=== PATIENT | female | born 1945 | race Caucasian/White ===

== ENCOUNTER 2016-04-17 09:29 | Day surgery (SDC) | payer MEDICARE ==
[2016-04-16 10:13] VITALS: BMI 29.2
[2016-04-17] MEDS ORDERED: LACTATED RINGERS 1,000 ML IV SCH (10:00)
[2016-04-17 10:46] VITALS: RESP 18; TEMP 98.2
[2016-04-17] MEDS ORDERED: LIDOCAINE 1% 20 ML VIAL (10MG/ML) FOR IV START SQ ONE (10:55)
[2016-04-17] MEDS ORDERED: LACTATED RINGERS 1,000 ML IV ONE ×2 (10:55→11:51)
[2016-04-17] MEDS ORDERED: fentaNYL (PF) 50 MCG/ML 2 ML AMP ONE (11:16)
[2016-04-17] MEDS ORDERED: MIDAZOLAM 2 MG/2 ML VIAL ONE (11:16)
[2016-04-17] MEDS ORDERED: TRIAMCINOLONE ACETONIDE 40 MG/ML 1 ML VIAL ONE (11:16)
[2016-04-17] MEDS ORDERED: BUPIVACAINE (PF) 0.5% 30 ML VIAL ONE (11:16)
--- NOTE | 2016-04-17 11:46 | P.PCN ---
Date of Procedure: 04/17/16 Procedure(s) Performed: PREOPERATIVE DIAGNOSIS : 1- Lumbar spondylosis with Facet Arthropathy without myelopathy . 2- Lumber degenerative disc disease. 3-sacroiliitis POSTOPERATIVE DIAGNOSIS: Same as preoperative diagnosis PROCEDURE: Diagnostic bilateral L3 -4 , L4 -5 , and L5-S1 medial branch block under fluoroscopy ANESTHESIA: Local with 1% lidocaine; IV sedation with Versed 2 mg and Fentanyl 100 mcg. EBL: Minimal COMPLICATION: None. IV FLUIDS: 100 mL of normal saline. PROCEDURE INDICATION: Chronic low back pain secondary to Facet arthropathy unresponsive to conservative treatment. PROCEDURE DESCRIPTION: the patient was seen and identified in the preop holding area , risks and benefits and possible complications of the procedure and alternative were discussed with the patient, and the patient agreed to proceed with the procedure and signed the consent IV was started and vital signs monitored during the procedure and fluoroscopy was used to maximize the benefit and accuracy of the needle placement, and sedation was given to decrease patient anxiety, patient was taken to the procedure room and placed in prone position vital signs monitored in the back prepped with chlorhexidine X3 then under strict sterile technique using a right oblique fluoroscopy ,the junction of the transverse process and the superior articulating process of the right L3- 4 , L4- 5, and L5-S1 vertebra which corresponding to the fluoroscopy image of the eye of the Satinder dog on the block side for the medial branches and subsequently , after local infiltration of skin and subcu tissuies with lidocaine 1% one mL at each level ,then 22- gauge Quincke-type needles , 3 needle was used , each one of them placed at the junction of the base of the transverse process and the superior articular process at the appropriate level, and the needle was advanced until the periosteum contacted, needle placement confirmed with AP oblique and lateral view and after appropriate needle placement confirmed, and after negative aspiration for heme and CSF and there was no paresthesia 1-1/2 mL of Marcaine 0.5% mixed with 40 mg Kenalog , then half mL injected at each level after negative aspiration the needle subsequently removed and the same procedure repeated for the left side at left side at L3-4, L4- 5 and L5-S1 levels. At the end of the procedure and the needles removed and a bandage applied after the skin was cleaned the cleaning solution patient taken to recovery room in stable condition and monitors in the recovery room for 20-30 minutes and discharged home in stable condition after discharge criteria met and patient will follow up with the pain clinic in 2-4 weeks
[2016-04-17] MEDS ORDERED: IV FLUID CONTINUATION 1,000 ML IV ONE (11:51)
--- NOTE | 2016-04-17 11:59 | FL ---
Fluoroscopy INDICATION: Pain FINDINGS: Fluoroscopy time: 8 seconds. Images obtained: 4. IMPRESSIONS: 1. Documentation of fluoroscopy.
[2016-04-17 12:06] VITALS: BP 136/66; PULSE 65
== END 2016-04-17 12:20 | disposition home or self-care (01) ==
LOC: ORPAIN 09:29
PROVIDERS: ATTEND Specialist
DX: G89.29 Other chronic pain (principal); M54.5 Low back pain; M47.816 Spondylosis without myelopathy or radiculopathy, lumbar region; M46.96 Unspecified inflammatory spondylopathy, lumbar region; M51.36 Other intervertebral disc degeneration, lumbar region; M46.1 Sacroiliitis, not elsewhere classified; Z88.1 Allergy status to other antibiotic agents
CPT/HCPCS: 64493; 64494; 64495; J2250; J3301; J3010

== ENCOUNTER → 2016-04-18 | Outpatient (CLI) | payer MEDICARE ==
--- NOTE | 2016-04-18 12:30 | MR ---
EXAMINATION TYPE: MR cervical spine wo con DATE OF EXAM ORDERED: 04/18/2016 12:19 PM HISTORY: M51.26 Bulging lumbar disc, R25.2 Cramp and spasm. TECHNOLOGIST HISTORY AT TIME OF EXAM: Muscle cramps COMPARISON: None. TECHNIQUE: Multiplanar, multiecho imaging of the cervical spine was obtained without contrast on a 1 .5 stephania magnet. FINDINGS: Prevertebral soft tissues are normal. Vertebral body height and alignment are maintained. Atlantoaxial relationships are normal. There is a normal craniocervical junction. Cord signal is maintained. At C2-C3, there is mild disc space loss. The intervertebral foramina are well maintained. There is a diffuse disc displacement mildly deforming the thecal sac without cord contact. There is mild uncover tebral joint disease. At C3-C4, there is an attempted fusion at this level. This is incomplete. There is bilateral interver tebral foraminal narrowing at C4. There is no significant compressive discopathy. There is mild uncovertebral joint disease. At C4-C5, there is disc space loss and hypertrophic spondylosis both anteriorly and posteriorly. Ther e is bilateral intervertebral foraminal narrowing, worse on the right than the left. There is a mixed spondylitic bar present posteriorly deforming the thecal sac without definite cord contact. There is mild uncovertebral joint disease. At C5-C6, the intervertebral foramina are reasonably well-maintained. There is a diffuse disc displac ement. There is uncovertebral joint disease. At C6-C7, there is mild, bilateral intervertebral foraminal narrowing. There is no significant compre ssive discopathy. There is uncovertebral joint disease. At C7-T1, there is a diffuse disc displacement. The intervertebral foramina are well maintained. IMPRESSION: 1. DIFFUSE DEGENERATIVE DISC DISEASE AND UNCOVERTEBRAL JOINT DISEASE. 2. ATTEMPTED EFFUSION C3-4. 3. MULTILEVEL INTERVERTEBRAL FORAMINAL NARROWING.
== END | disposition home or self-care (01) ==
LOC: RADMRIMAIN 11:19
PROVIDERS: ATTEND Psychiatry & Neurology Neurology
DX: M99.71 Connective tissue and disc stenosis of intervertebral foramina of cervical region (principal); M50.30 Other cervical disc degeneration, unspecified cervical region
CPT/HCPCS: 72141

== ENCOUNTER 2016-07-23 10:54 | Emergency (ER) | payer MEDICARE ==
[2016-07-23 10:58] VITALS: RESP 18
[2016-07-23] MEDS ORDERED: SODIUM CHLORIDE 0.9% 1,000 ML IV STA (11:12)
[2016-07-23 11:33] LABS: Basophils # (A) 0.1 k/uL (0-0.2); Basophils % (A) 2 %; CH 31.3; CHCM 33.1; Eosinophils # (A) 0.1 k/uL (0-0.7); Eosinophils % (A) 1 %; HCT 45.9 % (34.0-46.0); HDW 2.21; HGB 14.9 gm/dL (11.4-16.0); Luc % (Auto) 3; Lymphocytes # (A) 1.8 k/uL (1.0-4.8); Lymphocytes % (A) 27 %; MCH 30.8 pg (25.0-35.0); MCHC 32.4 g/dL (31.0-37.0); MCV 95.1 fL (80.0-100.0); Mean Platelet Volume 7.1; Monocytes # (A) 0.3 k/uL (0-1.0); Monocytes % (A) 4 %; Neutrophils # (A) 4.2 k/uL (1.3-7.7); Neutrophils % (A) 63 %; RBC 4.83 m/uL (3.80-5.40); WBC 6.6 k/uL (3.8-10.6); WBC (Perox) 6.23
--- NOTE | 2016-07-23 11:33 | XR ---
EXAMINATION TYPE: XR KUB DATE OF EXAM: 07/23/2016 11:30 AM COMPARISON: NONE HISTORY: Pain TECHNIQUE: Single supine KUB image of the abdomen is obtained FINDINGS: Small bowel demonstrates no evidence for dilatation or air fluid levels. Gas and fecal material is seen in non-distended colon. No convincing evidence for pneumoperitoneum. No unusual calcifications. The lung bases are clear. The osseous structures are intact. IMPRESSION: 1. Overall nonobstructive bowel gas pattern.
[2016-07-23 11:39] LABS: Appearance,Urine Clear (Clear); Bilirubin,Urine Negative (Negative); Glucose,Urine (UA) Negative (Negative); Ketones,Urine Negative (Negative); Leukocyte Esterase,Urine Negative (Negative); Mucus,Urine Rare /hpf; Nitrite,Urine Negative (Negative); Particle Count 465; Protein,Urine Negative (Negative); RBC,Urine 2 /hpf (0-5); Specific Gravity,Urine 1.008 (1.001-1.035); Squamous Epithelial Cell,Urine <1 /hpf (0-4); UA Billing (MACRO vs. MICRO) MICRO; Urobilinogen,Urine <2.0 mg/dL (<2.0)
[2016-07-23 11:44] LABS: ALT 39 U/L (9-52); AST 38 U/L (14-36); Alkaline Phosphatase 66 U/L (38-126); Anion Gap 9 mmol/L; Blood Urea Nitrogen 20 mg/dL (7-17); Calcium 9.6 mg/dL (8.4-10.2); Carbon Dioxide 25 mmol/L (22-30); Chloride 108 mmol/L (98-107); Glucose 81 mg/dL (74-99); Non-African American GFR(MDRD) >60 (>60 ml/min/1.73 sqM); Potassium 4.9 mmol/L (3.5-5.1); Sodium 142 mmol/L (137-145); Total Bilirubin 0.7 mg/dL (0.2-1.3)
--- NOTE | 2016-07-23 12:40 | ED ---
General Adult HPI - General Chief complaint: Nausea/Vomiting/Diarrhea Stated complaint: poss dehydration Time Seen by Provider: 07/23/16 11:00 Source: patient, RN notes reviewed Mode of arrival: ambulatory Limitations: no limitations - History of Present Illness Initial comments: Patient 71-year-old female who presents emergency room today with chief complaint of diarrhea 2 weeks. Patient does admit that she's had several loose stools. Denies any signs of blood. States is no abdominal pain. Denies any nausea vomiting. She states she feels like she eats something in the things go straight through her and she has an episode of diarrhea. She states she tried some [id number] medication for a few days with no relief. States currently not taking anything. Patient denies any other complaints or associated symptoms. Denies recent travel. Denies any recent antibiotic use. States she's never had similar symptoms in the past. Patient denies any recent fever, chills, shortness of breath, chest pain, back pain, abdominal pain, nausea or vomiting, numbness or tingling, dysuria or hematuria, constipation, headaches or visual changes, or any other complaints. - Related Data Home Medications Medication Instructions Recorded Confirmed Carisoprodol [Soma] 350 mg PO QID PRN 01/20/16 07/23/16 Budesonide-Formot 160-4.5 Mcg 2 puff INHALATION RT-BID 01/25/16 07/23/16 [Symbicort 160-4.5 Mcg Inhaler] Magnesium 200 mg PO HS 04/16/16 07/23/16 DULoxetine HCL [Cymbalta] 30 mg PO BID 05/08/16 07/23/16 Cyanocobalamin (Vitamin B-12) 1,000 mcg PO DAILY 07/23/16 07/23/16 [Vitamin B-12] HYDROcodone/APAP 5-325MG [[place] 1 tab PO QID PRN 07/23/16 07/23/16 5-325] Ipratropium/Albuterol Sulfate 2 puff INHALATION RT-QID PRN 07/23/16 07/23/16 [Combivent Respimat Inhaler] Previous Rx's Medication Instructions Recorded Loperamide [Imodium] 2 mg PO DIRECTED #20 capsule 07/23/16 Allergies Allergy/AdvReac Type Severity Reaction Status Date / Time levofloxacin [From Levaquin] Allergy Anaphylaxis Verified 07/23/16 11:25 Review of Systems ROS Statement: Those systems with pertinent positive or pertinent negative responses have been documented in the HPI. ROS Other: All systems not noted in ROS Statement are negative. Past Medical History Past Medical History: COPD, Hyperlipidemia, Osteoarthritis (OA) Additional Past Medical History / Comment(s): back pain, arotic aneurysm, born with one kidney History of Any Multi-Drug Resistant Organisms: None Reported Past Surgical History: Breast Surgery, Hysterectomy, Tonsillectomy Additional Past Surgical History / Comment(s): bilateral masectomy Past Anesthesia/Blood Transfusion Reactions: Motion Sickness Past Psychological History: No Psychological Hx Reported Smoking Status: Former smoker Past Alcohol Use History: None Reported Additional Past Alcohol Use History / Comment(s): smoker 40 years smokes now only when "stressed" Past Drug Use History: None Reported - Past Family History Mother Family Medical History: Cancer, Coronary Artery Disease (CAD) Additional Family Medical History / Comment(s): pancreatic cancer Father Family Medical History: Cancer Additional Family Medical History / Comment(s): lung General Exam - General Exam Comments Initial Comments: General: The patient is awake and alert, in no distress, and does not appear acutely ill. Eye: Pupils are equal, round and reactive to light, extra-ocular movements are intact. No nystagmus. There is normal conjunctiva bilaterally. No signs of icterus. Ears, nose, mouth and throat: There are moist mucous membranes and no oral lesions. Neck: The neck is supple, there is no tenderness or JVD. Cardiovascular: There is a regular rate and rhythm. No murmur, rub or gallop is appreciated. Respiratory: Lungs are clear to auscultation, respirations are non-labored, breath sounds are equal. No wheezes, stridor, rales, or rhonchi. Gastrointestinal: Soft, non-distended, non-tender abdomen without masses or organomegaly noted. There is no rebound or guarding present. No CVA tenderness. Bowel sounds are unremarkable. Musculoskeletal: Normal ROM, no tenderness. Strength 5/5. Sensation intact. Pulses equal bilaterally 2+. Neurological: A&O x 3. CN II-XII intact, There are no obvious motor or sensory deficits. Coordination appears grossly intact. Speech is normal. Skin: Skin is warm and dry and no rashes or lesions are noted. Psychiatric: Cooperative, appropriate mood & affect, normal judgment. Limitations: no limitations Course Vital Signs 07/23/16 10:56 Temperature 97.8 F Pulse Rate 62 Respiratory 18 Rate Blood Pressure 141/70 O2 Sat by Pulse 99 Oximetry Medical Decision Making - Medical Decision Making Patient reexamined at this time shows no signs of distress. Abdomen soft nontender. Patient's labs been reviewed no elevated white count. No fever. Options of a CT of the abdomen and pelvis were discussed with the patient. Patient unable to assist was able here in emergency room. At this time shows Been discharged home she declined any CAT scan states she would like to have stool studies performed. Unable to get sample here will be given a prescription and equipment to collect a sample to bring back to the lab. Patient is advised return to emergency room if there is any abdominal pain or increase worsen her symptoms. Advised follow-up the family doctor later this week for results and further evaluation if needed. - Lab Data Result diagrams: 07/23/16 11:20 07/23/16 11:20 Lab Results 07/23/16 07/23/16 07/23/16 Range/Units 11:20 11:20 11:20 WBC 6.6 (3.8-10.6) k/uL RBC 4.83 (3.80-5.40) m/uL Hgb 14.9 (11.4-16.0) gm/dL Hct 45.9 (34.0-46.0) % MCV 95.1 (80.0-100.0) fL MCH 30.8 (25.0-35.0) pg MCHC 32.4 (31.0-37.0) g/dL RDW 13.0 (11.5-15.5) % Plt Count 258 (150-450) k/uL Neutrophils % 63 % Lymphocytes % 27 % Monocytes % 4 % Eosinophils % 1 % Basophils % 2 % Neutrophils # 4.2 (1.3-7.7) k/uL Lymphocytes # 1.8 (1.0-4.8) k/uL Monocytes # 0.3 (0-1.0) k/uL Eosinophils # 0.1 (0-0.7) k/uL Basophils # 0.1 (0-0.2) k/uL Sodium 142 (137-145) mmol/L Potassium 4.9 (3.5-5.1) mmol/L Chloride 108 H (98-107) mmol/L Carbon Dioxide 25 (22-30) mmol/L Anion Gap 9 mmol/L BUN 20 H (7-17) mg/dL Creatinine 0.73 (0.52-1.04) mg/dL Est GFR (MDRD) Af Amer >60 (>60 ml/min/1.73 sqM) Est GFR (MDRD) Non-Af >60 (>60 ml/min/1.73 sqM) Glucose 81 (74-99) mg/dL Calcium 9.6 (8.4-10.2) mg/dL Total Bilirubin 0.7 (0.2-1.3) mg/dL AST 38 H (14-36) U/L ALT 39 (9-52) U/L Alkaline Phosphatase 66 (38-126) U/L Total Protein 7.0 (6.3-8.2) g/dL Albumin 4.2 (3.5-5.0) g/dL Urine Color Light Yellow Urine Appearance Clear (Clear) Urine pH 5.0 (5.0-8.0) Ur Specific [place] 1.008 (1.001-1.035) Urine Protein Negative (Negative) Urine Glucose (UA) Negative (Negative) Urine Ketones Negative (Negative) Urine Blood Trace H (Negative) Urine Nitrite Negative (Negative) Urine Bilirubin Negative (Negative) Urine Urobilinogen <2.0 (<2.0) mg/dL Ur Leukocyte Esterase Negative (Negative) Urine RBC 2 (0-5) /hpf Ur Squamous Epith Cells <1 (0-4) /hpf Urine Mucus Rare H (None) /hpf Disposition Clinical Impression: Acute diarrhea Disposition: HOME SELF-CARE Condition: Good Instructions: Acute Diarrhea (ED) Additional Instructions: Please continue [id number] Imodium. Please collect stool sample and bring her back to the lab. Please follow family doctor over the next 2 days. Please return to the emergency room symptoms increase or worsen or for any other concerns as discussed. Prescriptions: Loperamide [Imodium] 2 mg PO DIRECTED #20 capsule Time of Disposition: 12:37
[2016-07-23 13:09] VITALS: BP 167/73; PULSE 69; TEMP 98.6
== END 2016-07-23 13:09 | disposition home or self-care (01) ==
LOC: EC 10:54
DX: R19.7 Diarrhea, unspecified (principal); J44.9 Chronic obstructive pulmonary disease, unspecified; Z87.891 Personal history of nicotine dependence; Z79.899 Other long term (current) drug therapy; Z79.51 Long term (current) use of inhaled steroids; Z88.1 Allergy status to other antibiotic agents
CPT/HCPCS: 36415; 74000; 80053; 81001; 85025; 96360; 99284

== ENCOUNTER → 2016-08-20 | Outpatient (CLI) | payer MEDICARE ==
[2016-08-20 14:38] LABS: Blood Urea Nitrogen 22 mg/dL (7-17); Non-African American GFR(MDRD) >60 (>60 ml/min/1.73 sqM)
--- NOTE | 2016-08-20 16:05 | CT ---
EXAMINATION TYPE: CT abdomen pelvis w con DATE OF EXAM: 08/20/2016 REFERENCE: NONE HISTORY: K57.12 diverticulitis small intestine HISTORY: Patient complains of chronic diarrhea x2 months. REFERENCE: NONE CT DLP: 321 mGy Automated exposure control for dose reduction was used. TECHNIQUE: Helical acquisition through the abdomen and pelvis was obtained following the oral ingesti on of with Oral Contrast and following intravenous administration of 100 mL of Omnipaque 300. The tatum a was reformatted in axial, coronal and sagittal projections. FINDINGS: There is some scarring or atelectasis in the right middle lobe and lingula. Visualized por tions of the lungs are otherwise clear. There is no pleural or pericardial fluid. The heart is mildly prominent. There is a 14 mm hypodensity in the lateral segment of the left lobe of the liver. The liver is enlar ged measuring 20 cm. This is largely due to a prominent Michael's lobe. The spleen is normal. There is coarse calcification involving the right adrenal gland. This is likely due to previous hemor rhage. The left adrenal gland is normal. The right kidney is not visualized. There are 2 simple appearing cyst in the left kidney. The largest measures 21.5 mm. The pancreas is unremarkable. There is no significant retroperitoneal, iliac or inguinal adenopathy. The uterus and ovaries are not visualized. The bladder is unremarkable. There is no significant diverticular change and there is no radiographic evidence of diverticulitis. There is no colonic wall thickening. The appendix is not visualized with certainty. Small bowel loops are normal. There is no free fluid and no free air. There is degenerative disc disease and hypertrophic spondylosis at L5-S1. There is mild facet arthrop athy at this level. There is also degenerative disc disease and a vacuum phenomena present at L4-5. N o bony destructive lesion is seen. IMPRESSION: 1. 1.4 CM HYPODENSITY IN THE LATERAL SEGMENT LEFT LOBE OF THE LIVER. THIS LIKELY REPRESENTS A CYST. T HIS COULD BE CONFIRMED WITH ULTRASOUND. 2. ABSENCE OF THE RIGHT KIDNEY. 3. CALCIFICATION IN THE RIGHT ADRENAL GLAND MAY RELATE TO PREVIOUS HEMORRHAGE. 4. DEGENERATIVE CHANGE WITHIN THE SPINE.
== END | disposition home or self-care (01) ==
LOC: RADCTMAIN 13:48
PROVIDERS: ATTEND Internal Medicine
DX: K76.89 Other specified diseases of liver (principal)
CPT/HCPCS: 82565; 84520; 74177; 36415; Q9967

== ENCOUNTER 2016-09-02 10:19 | Emergency (ER) | payer MEDICARE ==
[2016-09-02] MEDS ORDERED: RX INFO: IV CONTRAST WAS GIVEN 1 EACH MISC MISCELLANE PRN (11:39)
[2016-09-02] MEDS ORDERED: SODIUM CHLORIDE 0.9% 1,000 ML IV STA (11:39)
[2016-09-02] MEDS ORDERED: DICYCLOMINE 10 MG/ML 2 ML AMP IM STA (11:39)
--- NOTE | 2016-09-02 11:42 | ED ---
Abdominal Pain HPI - General Chief Complaint: Abdominal Pain Stated Complaint: abd pain Time Seen by Provider: 09/02/16 11:29 Source: patient Mode of arrival: ambulatory Limitations: no limitations - History of Present Illness Initial Comments: Patient's a 71-year-old female presenting with diarrhea. Patient's been having diarrhea for the past 2 months. She states she's had a workup and was negative for celiac. Patient continues to have bowel movements about 10 times a day. BM 's described as watery and nonbloody. Patient states for the past 3 days she's been having diffuse intermittent abdominal pain for which she's been taking [place] without relief. Abdominal pain is not better with [place]. Patient states abdominal pain is worse with crampy bowel movements. Patient denies fever, chills, chest pain, shortness breath, nausea, vomiting. - Related Data Home Medications Medication Instructions Recorded Confirmed Carisoprodol [Soma] 350 mg PO QID PRN 01/20/16 09/02/16 Budesonide-Formot 160-4.5 Mcg 2 puff INHALATION RT-BID 01/25/16 09/02/16 [Symbicort 160-4.5 Mcg Inhaler] HYDROcodone/APAP 5-325MG [[place] 1 tab PO QID PRN 07/23/16 09/02/16 5-325] Ipratropium/Albuterol Sulfate 2 puff INHALATION RT-QID PRN 07/23/16 09/02/16 [Combivent Respimat Inhaler] DULoxetine HCL [Cymbalta] 60 mg PO DAILY 09/02/16 09/02/16 Previous Rx's Medication Instructions Recorded Dicyclomine [Bentyl] 20 mg PO QID #20 tablet 09/02/16 Allergies Allergy/AdvReac Type Severity Reaction Status Date / Time levofloxacin [From Levaquin] Allergy Anaphylaxis Verified 09/02/16 11:16 Review of Systems ROS Statement: Those systems with pertinent positive or pertinent negative responses have been documented in the HPI. Constitutional: No fever and no chills. HENT: No congestion, no rhinorrhea and no sore throat. Eyes: No discharge and no redness. Respiratory: No cough and no shortness of breath. Cardiovascular: No chest pain and no palpitations. Gastrointestinal: No nausea, no vomiting, +abdominal pain and +diarrhea. Genitourinary: No dysuria and no hematuria. Musculoskeletal: No back pain and no arthralgias. Skin: No pallor and no rash. Neurological: No dizziness and No headaches. ROS Other: All systems not noted in ROS Statement are negative. Past Medical History Past Medical History: COPD, Hyperlipidemia, Osteoarthritis (OA) Additional Past Medical History / Comment(s): back pain, arotic aneurysm, born with one kidney History of Any Multi-Drug Resistant Organisms: None Reported Past Surgical History: Breast Surgery, Hysterectomy, Tonsillectomy Additional Past Surgical History / Comment(s): bilateral masectomy Past Anesthesia/Blood Transfusion Reactions: Motion Sickness Past Psychological History: No Psychological Hx Reported Smoking Status: Current every day smoker Past Alcohol Use History: None Reported Past Drug Use History: None Reported - Past Family History Mother Family Medical History: Cancer, Coronary Artery Disease (CAD) Additional Family Medical History / Comment(s): pancreatic cancer Father Family Medical History: Cancer Additional Family Medical History / Comment(s): lung General Exam - General Exam Comments Initial Comments: Constitutional: Patient appears well-developed and well-nourished. Moderate distress. Anxious appearing Head: Normocephalic and atraumatic. Eyes: Conjunctivae and EOM are normal. Right eye exhibits no discharge. Left eye exhibits no discharge. No scleral icterus. Neck: Normal range of motion. Neck supple. Cardiovascular: Normal rate and regular rhythm. No murmur heard. Pulmonary/Chest: Effort normal and breath sounds normal. No respiratory distress. No wheezes. Abdominal: Soft. No distension. Diffuse lower abdominal tenderness most located left lower. There is no rebound and no guarding. Musculoskeletal: Normal range of motion. No edema or tenderness. Neurological: Patient alert and oriented to person, place, and time. Skin: Skin is warm and dry. Not diaphoretic. Nursing notes and vitals reviewed. Limitations: no limitations Course Vital Signs 09/02/16 09/02/16 09/02/16 10:33 13:40 14:50 Temperature 98.5 F 98.8 F Pulse Rate 80 76 96 Respiratory 20 18 18 Rate Blood Pressure 176/84 195/90 150/86 O2 Sat by Pulse 96 99 97 Oximetry - Reevaluation(s) Reevaluation #1: 09/02/16 15:00 Patient doing better with abdomen soft and nontender. No further episode of diarrhea while here. Offered hospitalization for which she wants to go home and try to manage his at home. Medical Decision Making - Medical Decision Making Patient 71-year-old female with chronic diarrhea presenting with worsening abdominal pain and diarrhea. Patient's workup in the past has been negative for celiac as well as C. diff. CBC unremarkable. BMP unremarkable. UA with hematuria. CT showing concerns for colitis less likely is infectious given has been going on for 2 months. And again less likely is ischemic colitis given that she has a lactic acid 1.0. Prior to discharge, patient was resting comfortably in bed. Course of stay improved. Abdomen soft nontender. Denies pain. Discussed physical exam and diagnostic tests with patient. Questions answered and patient is agreeable to discharge with close follow up with Primary Care Physician. Instructed to return to Emergency Department if symptoms worsen. . - Lab Data Result diagrams: 09/02/16 11:58 09/02/16 11:58 Lab Results 09/02/16 09/02/16 09/02/16 Range/Units 11:45 11:58 11:58 WBC 10.5 (3.8-10.6) k/uL RBC 5.40 (3.80-5.40) m/uL Hgb 16.8 H (11.4-16.0) gm/dL Hct 51.4 H (34.0-46.0) % MCV 95.2 (80.0-100.0) fL MCH 31.1 (25.0-35.0) pg MCHC 32.7 (31.0-37.0) g/dL RDW 13.1 (11.5-15.5) % Plt Count 265 (150-450) k/uL Neutrophils % 77 % Lymphocytes % 13 % Monocytes % 7 % Eosinophils % 0 % Basophils % 1 % Neutrophils # 8.1 H (1.3-7.7) k/uL Lymphocytes # 1.4 (1.0-4.8) k/uL Monocytes # 0.8 (0-1.0) k/uL Eosinophils # 0.0 (0-0.7) k/uL Basophils # 0.1 (0-0.2) k/uL Sodium 142 (137-145) mmol/L Potassium 4.4 (3.5-5.1) mmol/L Chloride 107 (98-107) mmol/L Carbon Dioxide 21 L (22-30) mmol/L Anion Gap 14 mmol/L BUN 19 H (7-17) mg/dL Creatinine 0.80 (0.52-1.04) mg/dL Est GFR (MDRD) Af Amer >60 (>60 ml/min/1.73 sqM) Est GFR (MDRD) Non-Af >60 (>60 ml/min/1.73 sqM) Glucose 86 (74-99) mg/dL Plasma Lactic Acid [place] (0.7-2.0) mmol/L Calcium 9.8 (8.4-10.2) mg/dL Magnesium 2.0 (1.6-2.3) mg/dL Urine Color Yellow Urine Appearance Clear (Clear) Urine pH 5.5 (5.0-8.0) Ur Specific [place] 1.019 (1.001-1.035) Urine Protein 1+ H (Negative) Urine Glucose (UA) Negative (Negative) Urine Ketones 1+ H (Negative) Urine Blood Small H (Negative) Urine Nitrite Negative (Negative) Urine Bilirubin Negative (Negative) Urine Urobilinogen 2.0 (<2.0) mg/dL Ur Leukocyte Esterase Negative (Negative) Urine RBC 10 H (0-5) /hpf Urine WBC <1 (0-5) /hpf Ur Squamous Epith Cells 1 (0-4) /hpf Urine Mucus Rare H (None) /hpf // Range/Units 11:58 WBC (3.8-10.6) k/uL RBC (3.80-5.40) m/uL Hgb (11.4-16.0) gm/dL Hct (34.0-46.0) % MCV (80.0-100.0) fL MCH (25.0-35.0) pg MCHC (31.0-37.0) g/dL RDW (11.5-15.5) % Plt Count (150-450) k/uL Neutrophils % % Lymphocytes % % Monocytes % % Eosinophils % % Basophils % % Neutrophils # (1.3-7.7) k/uL Lymphocytes # (1.0-4.8) k/uL Monocytes # (0-1.0) k/uL Eosinophils # (0-0.7) k/uL Basophils # (0-0.2) k/uL Sodium (137-145) mmol/L Potassium (3.5-5.1) mmol/L Chloride (98-107) mmol/L Carbon Dioxide (22-30) mmol/L Anion Gap mmol/L BUN (7-17) mg/dL Creatinine (0.52-1.04) mg/dL Est GFR (MDRD) Af Amer (>60 ml/min/1.73 sqM) Est GFR (MDRD) Non-Af (>60 ml/min/1.73 sqM) Glucose (74-99) mg/dL Plasma Lactic Acid Kar 1.0 (0.7-2.0) mmol/L Calcium (8.4-10.2) mg/dL Magnesium (1.6-2.3) mg/dL Urine Color Urine Appearance (Clear) Urine pH (5.0-8.0) Ur Specific [place] (1.001-1.035) Urine Protein (Negative) Urine Glucose (UA) (Negative) Urine Ketones (Negative) Urine Blood (Negative) Urine Nitrite (Negative) Urine Bilirubin (Negative) Urine Urobilinogen (<2.0) mg/dL Ur Leukocyte Esterase (Negative) Urine RBC (0-5) /hpf Urine WBC (0-5) /hpf Ur Squamous Epith Cells (0-4) /hpf Urine Mucus (None) /hpf Disposition Clinical Impression: Abdominal pain, Diarrhea, Colitis, Hematuria Disposition: HOME SELF-CARE Condition: Good Instructions: Irritable Bowel Syndrome (ED), Acute Diarrhea (ED), Hematuria (ED ), Abdominal Pain (ED) Prescriptions: Dicyclomine [Bentyl] 20 mg PO QID #20 tablet Referrals: Yaritza Nunez MD [Primary Care Provider] - 1-2 days Marcello Jamison MD [Medical Doctor] - 1-2 days Jeremy Aragon MD [STAFF PHYSICIAN] - 1-2 days
[2016-09-02 12:16] LABS: Basophils # (A) 0.1 k/uL (0-0.2); Basophils % (A) 1 %; CH 31.2; CHCM 32.9; Eosinophils % (A) 0 %; HCT 51.4 % (34.0-46.0); HGB 16.8 gm/dL (11.4-16.0); Luc # (Auto) 0.16; Luc % (Auto) 2; Lymphocytes # (A) 1.4 k/uL (1.0-4.8); Lymphocytes % (A) 13 %; MCH 31.1 pg (25.0-35.0); MCHC 32.7 g/dL (31.0-37.0); MCV 95.2 fL (80.0-100.0); Mean Platelet Volume 6.9; Monocytes # (A) 0.8 k/uL (0-1.0); Monocytes % (A) 7 %; Neutrophils # (A) 8.1 k/uL (1.3-7.7); Neutrophils % (A) 77 %; RDW 13.1 % (11.5-15.5); WBC 10.5 k/uL (3.8-10.6); WBC (Perox) 9.83
[2016-09-02 12:21] LABS: Appearance,Urine Clear (Clear); Bilirubin,Urine Negative (Negative); Glucose,Urine (UA) Negative (Negative); Ketones,Urine 1+ (Negative); Leukocyte Esterase,Urine Negative (Negative); Mucus,Urine Rare /hpf; Nitrite,Urine Negative (Negative); PH, Urine 5.5 (5.0-8.0); Particle Count 2129; Protein,Urine 1+ (Negative); RBC,Urine 10 /hpf (0-5); Specific Gravity,Urine 1.019 (1.001-1.035); Squamous Epithelial Cell,Urine 1 /hpf (0-4); UA Billing (MACRO vs. MICRO) MICRO; WBC,Urine <1 /hpf (0-5)
[2016-09-02 12:33] LABS: Anion Gap 14 mmol/L; Blood Urea Nitrogen 19 mg/dL (7-17); Calcium 9.8 mg/dL (8.4-10.2); Carbon Dioxide 21 mmol/L (22-30); Chloride 107 mmol/L (98-107); Glucose 86 mg/dL (74-99); Non-African American GFR(MDRD) >60 (>60 ml/min/1.73 sqM); Potassium 4.4 mmol/L (3.5-5.1); Sodium 142 mmol/L (137-145)
[2016-09-02 13:43] VITALS: RESP 18
[2016-09-02] MEDS ORDERED: MORPHINE SULFATE 4 MG/ML SYRINGE IVP STA (13:46)
[2016-09-02] MEDS ORDERED: diphenhydrAMINE 50 MG/ML 1 ML VIAL IVP STA (13:46)
[2016-09-02] MEDS ORDERED: METOCLOPRAMIDE 5 MG/ML 2 ML VIAL IVP STA (13:46)
--- NOTE | 2016-09-02 14:07 | CT ---
EXAMINATION TYPE: CT abdomen pelvis w con DATE OF EXAM: 09/02/2016 COMPARISON: NONE INDICATION: diarrhea DLP: 308.3 mGycm, Automated exposure control for dose reduction was used. CONTRAST: 100 mL of Omnipaque 300. Study performed without Oral Contrast TECHNIQUE: Axial images were obtained from above the diaphragm to the pubic rami in the axial plane a t 5 mm thick sections. Reconstructed images are reviewed on the computer in the coronal plane. FINDINGS: Limited CT sections are obtained the lung bases. The lung bases are clear. CT ABDOMEN: Liver: There is a 1.3 cm cyst in the anterior medial right lobe liver. There is some hypodensity pedro g the superior lateral posterior right lobe liver could be related to diaphragm impression. Underlyin g cyst be considered. 0.8 cm cyst within the left lobe liver. Spleen: Normal Pancreas: Normal Adrenal glands: The adrenal glands are normal. Gallbladder: Normal Kidneys: Right kidney is not identified. Left kidney: There are several hypodensities suggestive for renal cysts.. No hydronephrosis is present. Delayed images were obtained through the kidneys, which remain unremarkable. Aorta: Vascular calcification is within the aorta. Inferior vena cava: Normal. CT PELVIS: There is prominent proximal transverse colon. Wall thickening may be present. Correlate for transvers e colitis. Ascending colon is poorly visualized. Correlate for resection. Appendix: Not visualized Urinary bladder: Normal Genitourinary structures: Uterus is not identified. Adnexal regions are clear. Osseous structures: No suspicious lytic or sclerotic lesions. Degenerative disc changes L4-5 L5-S1. D egenerative changes are at sacroiliac joints bilaterally. IMPRESSIONS: 1. Correlate for postsurgical changes in the ascending colon and colitis within the transverse colon .
[2016-09-02 14:51] VITALS: BP 150/86; PULSE 96; TEMP 98.8
== END 2016-09-02 15:07 | disposition home or self-care (01) ==
LOC: EC 10:19
DX: K52.9 Noninfective gastroenteritis and colitis, unspecified (principal); R31.9 Hematuria, unspecified; J44.9 Chronic obstructive pulmonary disease, unspecified; F17.200 Nicotine dependence, unspecified, uncomplicated; Z79.51 Long term (current) use of inhaled steroids; Z88.1 Allergy status to other antibiotic agents; Z79.899 Other long term (current) drug therapy
CPT/HCPCS: 99284; 96372; 96374; 96375 ×2; 96361; 36415; 80048; 83605; 83735; 85025; 81001; 74177; J2270; J1200; J0500; J2765; Q9967

== ENCOUNTER 2016-09-07 07:49 | Inpatient (IN) | payer MEDICARE ==
[2016-09-07] MEDS ORDERED: HYDROmorphone 1 MG/ML 1 ML SYRINGE IVP STA (08:29)
[2016-09-07] MEDS ORDERED: SODIUM CHLORIDE 0.9% 1,000 ML IV STA ×2 (08:29)
[2016-09-07] MEDS ORDERED: ONDANSETRON 4 MG/2 ML VIAL IVP STA ×2 (08:29→08:33)
[2016-09-07] MEDS ORDERED: PANTOPRAZOLE 40 MG/10 ML VIAL IVP STA (08:29)
--- NOTE | 2016-09-07 08:32 | ED ---
Abdominal Pain HPI - General Chief Complaint: Abdominal Pain Stated Complaint: ABDOMINAL PAIN Time Seen by Provider: 09/07/16 08:13 Source: patient, EMS Mode of arrival: EMS Limitations: no limitations - History of Present Illness Initial Comments: This 71-year-old white female presents complaining of abdominal pain and diarrhea. She states that she has had diarrhea daily for the last 2-1/2 months. She denies any blood in her diarrhea or black tarry stools. She has had some nausea with dry heaves. Her appetite has been decreased. She states that she had a temperature of 100 over the past day. She states that her abdominal pain is diffuse in nature and fairly severe. She relates that she's lost approximately 10 pounds in the last 2-1/2 months. She had a negative colonoscopy and EGD approximately [address] Jamison. Over the past couple of months she has had 2 CT scans of her abdomen and pelvis. She was seen in the emergency department 5 days ago and had a computed tomography scan which showed some transverse colon colitis. They recommended that she be admitted to the hospital at that time but she refused. She has not done well at home since. She states that they prescribed. Medication it did not seem to help. No other complaints or modifying factors. She does present via EMS and received 4 mg of Zofran prior to arrival. She relates that she had the colonoscopy done at [facility] outpatient facility and everything was normal for months ago. She relates that she had between 30 and 32 bouts of diarrhea yesterday. - Related Data Home Medications Medication Instructions Recorded Confirmed Carisoprodol [Soma] 350 mg PO QID PRN 01/20/16 09/07/16 Budesonide-Formot 160-4.5 Mcg 2 puff INHALATION RT-BID 01/25/16 09/07/16 [Symbicort 160-4.5 Mcg Inhaler] HYDROcodone/APAP 5-325MG [[place] 1 tab PO QID PRN 07/23/16 09/07/16 5-325] Ipratropium/Albuterol Sulfate 2 puff INHALATION RT-QID PRN 07/23/16 09/07/16 [Combivent Respimat Inhaler] DULoxetine HCL [Cymbalta] 60 mg PO DAILY 09/02/16 09/07/16 L.acidoph,Paracasei, B.lactis 1 cap PO DAILY 09/07/16 09/07/16 [Probiotic] Previous Rx's Medication Instructions Recorded Dicyclomine [Bentyl] 20 mg PO QID #20 tablet 09/02/16 Allergies Allergy/AdvReac Type Severity Reaction Status Date / Time levofloxacin [From Levaquin] Allergy Anaphylaxis Verified 09/07/16 08:50 Review of Systems ROS Statement: Those systems with pertinent positive or pertinent negative responses have been documented in the HPI. ROS Other: All systems not noted in ROS Statement are negative. Past Medical History Past Medical History: COPD, Hyperlipidemia, Osteoarthritis (OA) Additional Past Medical History / Comment(s): back pain, arotic aneurysm, born with one kidney History of Any Multi-Drug Resistant Organisms: None Reported Past Surgical History: Breast Surgery, Hysterectomy, Tonsillectomy Additional Past Surgical History / Comment(s): bilateral masectomy Past Anesthesia/Blood Transfusion Reactions: Motion Sickness Past Psychological History: No Psychological Hx Reported Smoking Status: Current every day smoker Past Alcohol Use History: None Reported Past Drug Use History: None Reported - Past Family History Mother Family Medical History: Cancer, Coronary Artery Disease (CAD) Additional Family Medical History / Comment(s): pancreatic cancer Father Family Medical History: Cancer Additional Family Medical History / Comment(s): lung General Exam - General Exam Comments Initial Comments: GENERAL: The patient is well nourished and well hydrated. VITAL SIGNS: Heart rate, blood pressure, respiratory rate reviewed as recorded in nurse's notes. EYES: Pupils are round and reactive. Extraocular movements are intact. No conjunctival / lid redness or swelling. ENT: No external evidence of injury, swelling, or ecchymosis. Airway is patent. Throat is clear. NECK: Nontender. No swelling or evidence of injury. No subcutaneous emphysema. Trachea is midline. No thyroid mass. HEART: Regular rate and rhythm. Good peripheral pulses. LUNGS/CHEST: Breath sounds clear and equal bilaterally. No rales, rhonchi, or wheezes. No ecchymosis, subcutaneous emphysema, or tenderness. ABDOMEN: There is moderate tenderness diffusely throughout the abdomen. No palpable masses or organomegaly. No peritoneal signs. No abdominal wall swelling or ecchymosis. EXTREMITIES: No extremity tenderness. Normal muscle tone and function. No thoracolumbar tenderness. NEUROLOGIC: Sensation is grossly intact. Cranial nerve exam reveals face is symmetrical, tongue is midline, speech is clear. SKIN: No abrasions or ecchymosis is noted. No induration or masses noted. PSYCHIATRIC: Alert and oriented. Appropriate behavior and judgment. Limitations: no limitations Course Vital Signs 09/07/16 09/07/16 07:54 09:17 Temperature 97.8 F 98.5 F Pulse Rate 75 75 Respiratory 17 16 Rate Blood Pressure 140/64 137/70 O2 Sat by Pulse 96 94 L Oximetry Medical Decision Making - Medical Decision Making The patient is seen and examined. All diagnostics are reviewed. An IV is started and she is hydrated in receives Zofran as well as Dilaudid intravenous. The EKG shows a normal sinus rhythm with occasional premature atrial complex. There is no acute ST-T wave changes identified. The OH interval is 150, QRS duration is 92, and the QTC intervals 448. The laboratory doesn't show an elevated white blood cell count at 14,000. The remainder of labs are essentially within normal limits. The acute abdominal series does show likely colitis, please see report for details. Overall, the exact cause of her colitis is not definitively determined. Is felt that it certainly could be infectious in nature especially with elevated white blood cell count. The case is discussed with Dr. Evans and he is agreeable to admission with Dr. Wilson from gastroenterology and Dr. Jamison from surgery to consult. He would like her checked for C. diff colitis and be placed on Flagyl. The patient is agreeable to admission and she is admitted to the general medical floor for full admit. - Lab Data Result diagrams: 09/07/16 08:10 09/07/16 08:10 Lab Results 09/07/16 09/07/16 09/07/16 Range/Units 08:10 08:10 08:10 WBC 14.1 H (3.8-10.6) k/uL RBC 4.96 (3.80-5.40) m/uL Hgb 16.0 (11.4-16.0) gm/dL Hct 46.1 H (34.0-46.0) % MCV 93.0 (80.0-100.0) fL MCH 32.3 (25.0-35.0) pg MCHC 34.7 (31.0-37.0) g/dL RDW 12.8 (11.5-15.5) % Plt Count 295 (150-450) k/uL Neutrophils % 83 % Lymphocytes % 8 % Monocytes % 6 % Eosinophils % 1 % Basophils % 0 % Neutrophils # 11.7 H (1.3-7.7) k/uL Lymphocytes # 1.2 (1.0-4.8) k/uL Monocytes # 0.9 (0-1.0) k/uL Eosinophils # 0.1 (0-0.7) k/uL Basophils # 0.1 (0-0.2) k/uL PT 10.1 (9.0-12.0) sec INR 1.0 (<1.1) APTT 22.3 (22.0-30.0) sec Sodium 140 (137-145) mmol/L Potassium 4.1 (3.5-5.1) mmol/L Chloride 111 H (98-107) mmol/L Carbon Dioxide 21 L (22-30) mmol/L Anion Gap 8 mmol/L BUN 14 (7-17) mg/dL Creatinine 0.63 (0.52-1.04) mg/dL Est GFR (MDRD) Af Amer >60 (>60 ml/min/1.73 sqM) Est GFR (MDRD) Non-Af >60 (>60 ml/min/1.73 sqM) Glucose 91 (74-99) mg/dL Calcium 8.5 (8.4-10.2) mg/dL Total Bilirubin 0.6 (0.2-1.3) mg/dL AST 31 (14-36) U/L ALT 40 (9-52) U/L Alkaline Phosphatase 80 (38-126) U/L Total Protein 5.7 L (6.3-8.2) g/dL Albumin 3.2 L (3.5-5.0) g/dL Amylase 45 (30-110) U/L Lipase 30 (23-300) U/L Urine Color Urine Appearance (Clear) Urine pH (5.0-8.0) Ur Specific Frannie (1.001-1.035) Urine Protein (Negative) Urine Glucose (UA) (Negative) Urine Ketones (Negative) Urine Blood (Negative) Urine Nitrite (Negative) Urine Bilirubin (Negative) Urine Urobilinogen (<2.0) mg/dL Ur Leukocyte Esterase (Negative) Urine RBC (0-5) /hpf Urine WBC (0-5) /hpf Ur Squamous Epith Cells (0-4) /hpf Cellular Casts (0) /lpf Hyaline Casts (0-2) /lpf Urine Mucus (None) /hpf 09/07/16 Range/Units 08:10 WBC (3.8-10.6) k/uL RBC (3.80-5.40) m/uL Hgb (11.4-16.0) gm/dL Hct (34.0-46.0) % MCV (80.0-100.0) fL MCH (25.0-35.0) pg MCHC (31.0-37.0) g/dL RDW (11.5-15.5) % Plt Count (150-450) k/uL Neutrophils % % Lymphocytes % % Monocytes % % Eosinophils % % Basophils % % Neutrophils # (1.3-7.7) k/uL Lymphocytes # (1.0-4.8) k/uL Monocytes # (0-1.0) k/uL Eosinophils # (0-0.7) k/uL Basophils # (0-0.2) k/uL PT (9.0-12.0) sec INR (<1.1) APTT (22.0-30.0) sec Sodium (137-145) mmol/L Potassium (3.5-5.1) mmol/L Chloride (98-107) mmol/L Carbon Dioxide (22-30) mmol/L Anion Gap mmol/L BUN (7-17) mg/dL Creatinine (0.52-1.04) mg/dL Est GFR (MDRD) Af Amer (>60 ml/min/1.73 sqM) Est GFR (MDRD) Non-Af (>60 ml/min/1.73 sqM) Glucose (74-99) mg/dL Calcium (8.4-10.2) mg/dL Total Bilirubin (0.2-1.3) mg/dL AST (14-36) U/L ALT (9-52) U/L Alkaline Phosphatase (38-126) U/L Total Protein (6.3-8.2) g/dL Albumin (3.5-5.0) g/dL Amylase (30-110) U/L Lipase (23-300) U/L Urine Color Yellow Urine Appearance Clear (Clear) Urine pH 5.5 (5.0-8.0) Ur Specific Frannie 1.010 (1.001-1.035) Urine Protein 2+ H (Negative) Urine Glucose (UA) Negative (Negative) Urine Ketones Negative (Negative) Urine Blood Small H (Negative) Urine Nitrite Negative (Negative) Urine Bilirubin Negative (Negative) Urine Urobilinogen <2.0 (<2.0) mg/dL Ur Leukocyte Esterase Negative (Negative) Urine RBC 2 (0-5) /hpf Urine WBC 1 (0-5) /hpf Ur Squamous Epith Cells <1 (0-4) /hpf Cellular Casts 1 (0) /lpf Hyaline Casts 4 H (0-2) /lpf Urine Mucus Rare H (None) /hpf Disposition Clinical Impression: Abdominal pain, Diarrhea, Nausea and vomiting, Weight loss, Dehydration, Leukocytosis, Colitis Disposition: ADMITTED IP TO THIS [facility] Condition: Fair Time of Disposition: 10:03
[2016-09-07 09:02] LABS: Basophils # (A) 0.1 k/uL (0-0.2); Basophils % (A) 0 %; CH 30.8; CHCM 33.3; Eosinophils # (A) 0.1 k/uL (0-0.7); Eosinophils % (A) 1 %; HCT 46.1 % (34.0-46.0); HDW 2.28; Luc # (Auto) 0.18; Luc % (Auto) 1; Lymphocytes # (A) 1.2 k/uL (1.0-4.8); Lymphocytes % (A) 8 %; MCH 32.3 pg (25.0-35.0); MCHC 34.7 g/dL (31.0-37.0); Mean Platelet Volume 7.8; Monocytes # (A) 0.9 k/uL (0-1.0); Monocytes % (A) 6 %; Neutrophils # (A) 11.7 k/uL (1.3-7.7); Neutrophils % (A) 83 %; RBC 4.96 m/uL (3.80-5.40); RDW 12.8 % (11.5-15.5); WBC 14.1 k/uL (3.8-10.6); WBC (Perox) 14.54
[2016-09-07 09:11] LABS: ALT 40 U/L (9-52); AST 31 U/L (14-36); Alkaline Phosphatase 80 U/L (38-126); Amylase 45 U/L (30-110); Anion Gap 8 mmol/L; Blood Urea Nitrogen 14 mg/dL (7-17); Calcium 8.5 mg/dL (8.4-10.2); Carbon Dioxide 21 mmol/L (22-30); Chloride 111 mmol/L (98-107); Glucose 91 mg/dL (74-99); Non-African American GFR(MDRD) >60 (>60 ml/min/1.73 sqM); Potassium 4.1 mmol/L (3.5-5.1); Sodium 140 mmol/L (137-145); Total Bilirubin 0.6 mg/dL (0.2-1.3); Total Protein 5.7 g/dL (6.3-8.2)
[2016-09-07 09:12] LABS: Appearance,Urine Clear (Clear); Bilirubin,Urine Negative (Negative); Glucose,Urine (UA) Negative (Negative); Ketones,Urine Negative (Negative); Leukocyte Esterase,Urine Negative (Negative); Mucus,Urine Rare /hpf; Nitrite,Urine Negative (Negative); PH, Urine 5.5 (5.0-8.0); Partial Thromboplastin Time 22.3 sec (22.0-30.0); Particle Count 1870; Protein,Urine 2+ (Negative); Prothrombin Time 10.1 sec (9.0-12.0); RBC,Urine 2 /hpf (0-5); Squamous Epithelial Cell,Urine <1 /hpf (0-4); UA Billing (MACRO vs. MICRO) MICRO; Urobilinogen,Urine <2.0 mg/dL (<2.0); WBC,Urine 1 /hpf (0-5)
--- NOTE | 2016-09-07 09:44 | XR ---
EXAMINATION TYPE: XR abdomen acute w cxr DATE OF EXAM: 09/07/2016 CLINICAL HISTORY: Abdominal pain and diarrhea for 2 months. TECHNIQUE: Single frontal view of chest is obtained. Supine and upright views of the abdomen are acq uired. COMPARISON: CT abdomen and pelvis September 02, 2016. Chest x-ray December 31, 2014. FINDINGS: The lungs are grossly clear without pleural effusion or pneumothorax. Cardiac silhouette size appears within normal limits. Osseous structures are somewhat demineralized. Gas is noted in nondistended stomach and small bowel loops. Gas and fecal material is seen in nondis tended colon. No pneumoperitoneum, visceromegaly, or suspicious calcification is identified. The o sseous structures are intact. IMPRESSION: 1. No acute pulmonary process. 2. Overall nonspecific but likely nonobstructive bowel gas pattern. I agree with suspected colitis tr ansverse colon on CT report, there is likely involvement of small length right colon through cecum. D ifferential includes infectious, inflammatory, and ischemic etiologies.
[2016-09-07] MEDS ORDERED: metroNIDAZOLE-NS PMX 500 MG in SALINE 1 100ML.BAG IVPB STA (10:00)
[2016-09-07] MEDS ORDERED: ACETAMINOPHEN TAB 325 MG TAB PO PRN (10:04)
[2016-09-07] MEDS ORDERED: NALOXONE 0.4 MG/ML 1 ML VIAL IV PRN (10:04)
[2016-09-07] MEDS ORDERED: HYDROcodone/APAP 5-325MG 1 EACH TAB PO PRN (10:04)
[2016-09-07] MEDS ORDERED: IPRATROPIUM-ALBUTEROL 3 ML NEB INHALATION PRN (10:08)
[2016-09-07] MEDS ORDERED: CARISOPRODOL 350 MG TAB PO PRN (10:08)
[2016-09-07] MEDS ORDERED: METOCLOPRAMIDE 5 MG/ML 2 ML VIAL IVP SCH (12:00)
[2016-09-07] MEDS ORDERED: LOPERAMIDE 2 MG CAP PO STA (12:28)
--- NOTE | 2016-09-07 12:32 | P.CONS ---
History of Present Illness - Reason for Consult Consult date: 09/07/16 Diarrhea Requesting physician: Koko Evans - History of Present Illness 71-year-old female admitted with intermittent nonbloody diarrhea 2-2 1/2 months with diffuse abdominal discomfort. 8-15 times daily sometimes during sleep. Decreased appetite. About 10 pound weight loss over the last few months. EGD colonoscopy [address] Jamison for screening and abdominal discomfort reported as negative. Computed tomography scan abdomen and pelvis within the past week report transverse colon colitis. White count 14.1. Hemoglobin 16. INR 1.0. Lactic acid 1.0. Tried Imodium and Flagyl without improvement. No recent travels or changes in medications. C difficile specimen May negative. Review of Systems Constitutional: Denies fever, chills, sweats, weight gain, or loss. HEENT: Negative for migraines, blurred vision or loss, earaches, drainage, tinnitus, oral mucosal lesions, dysphagia, or odynophagia. CARDIAC: Negative for chest pain, arrhythmias, or palpitation. RESPIRATORY: COPD. Negative for shortness of breath, hemoptysis, cough, or sputum production. GI: See HPI for pertinent findings. : Negative for hematuria, urgency, frequency, polyuria, or dysuria. GYNc: Denies possibility of . Negative vaginal discharge. MUSCULOSKELETAL: Fibromyalgia. Negative for muscle aches, swelling, arthritis, and arthralgias. NEUROLOGIC: Negative for stroke or TIA. ENDOCRINE: Negative for thyroid problems. SKIN: Negative for rash or itching. PSYCHIATRIC: Negative history for depression and anxiety All systems: negative (See HPI) Past Medical History Past Medical History: COPD, Eye Disorder, Fibromyalgia, Osteoarthritis (OA) Additional Past Medical History / Comment(s): Pt states high cholesterol is no longer a problem and has been taken off medication, arthritis in spine, chronic low back pain with bilateral sciatica but more so on the L side, DDD, .37 cm aoritc aneurysm, born with only L kidney, murmur, varicose veins bilaterally, past migraines, beginnings of cataracts bilaterally History of Any Multi-Drug Resistant Organisms: None Reported Past Surgical History: Bladder Surgery, Breast Surgery, Hysterectomy, Orthopedic Surgery, Tonsillectomy Additional Past Surgical History / Comment(s): bilateral mastectomy and reconctruction for pre-cancer, EGD/colonoscopy done about 4 months ago, L tonsillectomy, low back pain procedures, bunionectomy R foot, bladder suspension. Past Anesthesia/Blood Transfusion Reactions: Motion Sickness Past Psychological History: No Psychological Hx Reported Additional Psychological History / Comment(s): Pt resides with her spouse. She is independent. Smoking Status: Light tobacco smoker Past Alcohol Use History: None Reported Additional Past Alcohol Use History / Comment(s): Pt states she has smoked for about 45 yrs. She states she is a lite smoker, less than a 1/2 ppd. Past Drug Use History: None Reported - Past Family History Mother Family Medical History: Cancer, Coronary Artery Disease (CAD) Additional Family Medical History / Comment(s): Mother of pancreatic/liver cancer at the age of 86yrs. Father Family Medical History: Cancer Additional Family Medical History / Comment(s): Father of lung cancer at the age of 82yrs. Medications and Allergies Home Medications Medication Instructions Recorded Confirmed Type Carisoprodol [Soma] 350 mg PO QID PRN 01/20/16 09/07/16 History Budesonide-Formot 160-4.5 Mcg 2 puff INHALATION RT-BID 01/25/16 09/07/16 History [Symbicort 160-4.5 Mcg Inhaler] HYDROcodone/APAP 5-325MG [[place] 1 tab PO QID PRN 07/23/16 09/07/16 History 5-325] Ipratropium/Albuterol Sulfate 2 puff INHALATION RT-QID PRN 07/23/16 09/07/16 History [Combivent Respimat Inhaler] DULoxetine HCL [Cymbalta] 60 mg PO DAILY 09/02/16 09/07/16 History L.acidoph,Paracasei, B.lactis 1 cap PO DAILY 09/07/16 09/07/16 History [Probiotic] Allergies Allergy/AdvReac Type Severity Reaction Status Date / Time levofloxacin [From Levaquin] Allergy Anaphylaxis Verified 09/07/16 08:50 Physical Exam Vitals: Vital Signs Temp Pulse Resp BP Pulse Ox 09/07/16 11:14 98.5 F 78 18 156/76 96 09/07/16 09:17 98.5 F 75 16 137/70 94 L 09/07/16 07:54 97.8 F 75 17 140/64 96 Intake and Output 09/06/16 09/07/16 09/07/16 22:59 06:59 14:59 Other: Voiding Method Toilet Weight 45.359 kg Patient Weight 09/08/16 06:59 Weight 45.359 kg General appearance: The patient is alert, oriented, in no acute distress. Visible nausea. HET: Head is normocephalic and atraumatic. Pupils are equal and reactive. Oropharynx is clear without lesions. Neck: Supple without lymphadenopathy. Trachea midline. Heart: S1 S2. Regular rate and rhythm. Lungs: No crackles or wheezes are heard. Abdomen: Soft, diffuse mild tenderness across midabdomen, nondistended with bowel sounds. No peritoneal signs. No palpable organomegaly or masses. Extremities: Normal skin color and turgor. No cyanosis, rash, ulceration, clubbing, or edema. Radial and pedal pulses are 2/4 bilaterally. Neurological: No focal deficits. Strength and sensation are grossly intact. Results CBC & Chem 7: 09/07/16 08:10 09/07/16 08:10 Labs: Abnormal Lab Results - Last 24 Hours (Table) 09/07/16 09/07/16 09/07/16 Range/Units 08:10 08:10 08:10 WBC 14.1 H (3.8-10.6) k/uL Hct 46.1 H (34.0-46.0) % Neutrophils # 11.7 H (1.3-7.7) k/uL Chloride 111 H (98-107) mmol/L Carbon Dioxide 21 L (22-30) mmol/L Total Protein 5.7 L (6.3-8.2) g/dL Albumin 3.2 L (3.5-5.0) g/dL Urine Protein 2+ H (Negative) Urine Blood Small H (Negative) Hyaline Casts 4 H (0-2) /lpf Urine Mucus Rare H (None) /hpf CT scan - abdomen: report reviewed (09/02/16 report) Assessment and Plan (1) Diarrhea Narrative/Plan: possible inflammatory possible infectious Status: Acute (2) Colitis Status: Acute Plan: 1. Sed rate/CRP/celiac panel. 2. Loperamide 2mg QID. Cotinue Flagy. Bentyl QID. 3. Stool studies. Repeat colonoscopy contingent on clinical course. Thank you for this kind referral and the opportunity to participate in the care of your patient. This consultation was discussed with Dr. Harley. The impression and plan of care have been directed as dictated.
[2016-09-07] MEDS ORDERED: DICYCLOMINE 20 MG TAB PO SCH (13:00)
[2016-09-07] MEDS: SCOPOLAMINE 1.5MG/72HR PATCH TRANSDERM SCH (13:01)
[2016-09-07] MEDS: HYDROmorphone 1 MG/ML 1 ML SYRINGE IV PRN ×4 (13:01→22:42)
[2016-09-07] MEDS: ONDANSETRON 4 MG/2 ML VIAL IVP PRN ×2 (13:01→22:41)
[2016-09-07] MEDS ORDERED: DICYCLOMINE 20 MG TAB PO PRN (13:52)
[2016-09-07 14:14] VITALS: BMI 18.1
--- NOTE | 2016-09-07 17:03 | P.HPIM ---
History of Present Illness H&P Date: 09/07/16 Chief Complaint: Severe abdominal pain, colitis, severe diarrhea, C. difficile, positive Hem 71-year-old female [address] Nunez's patient with past medical history of COPD, fibromyalgia, chronic back pain, PAD and aortic aneurysm who has been seen in our office for the last few years. Patient apparently developed to have significant diarrhea and abdominal pain for the last 2 and half to 3 months was seen and evaluated by Dr. Caceres and apparently had an EGD and colonoscopy back on 05/15/2016 result were consistent with no major abnormality the colon area was normal with no sign of polyps or colitis at the time. 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 For the last 7 days had significant increase abdominal pain her diarrhea become much worse and had over 55 episode of diarrhea in the last 24 hours. Patient ended up coming to the emergency department at [facility] surprisingly her CAT scan of the abdomen shows significant abnormality consistent with mild colitis ischemic versus infectious specially in the sigmoid area. Patient was started on Flagyl will consult Dr. Jamison and consult Dr. Harley gastroenterology further study and testing for us 2 weeks and for celiac need to be done patient might need to be treated as well. Surprisingly her C. difficile culture came back positive patient will be continue on Flagyl for now might consult infectious disease for possible need to be on different anti-C. difficile medication if that is a failure to Flagyl. Review of Systems Constitutional: Reports anorexia, Reports chronic pain, Reports fatigue, Reports lethargy, Reports malaise, Reports weakness, Reports weight loss, Denies as per HPI, Denies chills, Denies chronic headaches, Denies daytime sleepiness, Denies fever, Denies night sweats, Denies poor appetite, Denies sweats, Denies weight gain Eyes: bilateral as per HPI Ears: bilateral: decreased hearing, ear discharge Ears, nose, mouth and throat: Reports nasal congestion, Reports sinus pain, Reports sinus pressure, Denies as per HPI, Denies ant. neck pain, Denies bleeding gums, Denies dental pain, Denies dysphagia, Denies epistaxis, Denies headache, Denies hoarseness, Denies mouth pain, Denies nasal discharge, Denies neck fullness/pressure, Denies neck lump, Denies nose pain, Denies odynophagia, Denies post-nasal drip, Denies swelling in mouth, Denies swelling in throat, Denies sore throat, Denies vertigo, Denies voice changes Cardiovascular: Reports dyspnea on exertion, Reports edema, Denies as per HPI, Denies chest pain, Denies claudication, Denies decreased exercise tolerance, Denies high blood pressure, Denies irregular heart beat, Denies leg edema, Denies lightheadedness, Denies orthopnea, Denies palpitations, Denies paroxysmal nocturnal dyspnea, Denies phlebitis, Denies rapid heart beat, Denies shortness of breath, Denies syncope Respiratory: Reports congestion, Reports cough, Reports dyspnea, Denies as per HPI, Denies cough with sputum, Denies excessive sputum, Denies hemoptysis, Denies home oxygen, Denies pain, Denies pain on inspiration, Denies pleurisy, Denies respiratory infections, Denies sleep apnea, Denies snoring, Denies wheezing Gastrointestinal: Reports abdominal pain, Reports belching, Reports bloating, Reports change in bowel habits, Reports diarrhea, Reports early satiety, Reports heartburn, Reports indigestion, Reports melena, Reports nausea, Denies as per HPI, Denies BRBPR, Denies coffee ground emesis, Denies constipation, Denies dyspepsia, Denies excessive gas, Denies hematemesis, Denies hematochezia , Denies jaundice, Denies lactose intolerance, Denies loss of appetite, Denies vomiting Genitourinary: Reports urinary frequency, Denies as per HPI, Denies abnormal vaginal bleeding, Denies decreased libido, Denies difficulty conceiving, Denies difficulty voiding, Denies dysmenorrhea, Denies dyspareunia, Denies dysuria, Denies flank pain, Denies genital sores, Denies hematuria, Denies hot flashes, Denies incomplete emptying, Denies kidney stones, Denies menorrhagia, Denies mixed incontinence, Denies nocturia, Denies pelvic pain, Denies post void dribbling, Denies , Denies prolapse symptoms, Denies stress incontinence , Denies urge incontinence, Denies urgency, Denies vaginal discharge, Denies vaginal dryness, Denies vaginal itching, Denies vaginal odor Musculoskeletal: Reports fractures, Reports low back pain, Reports myalgias, Reports neck pain, Denies as per HPI, Denies arm numbness/tingling, Denies atrophy, Denies frequent falls, Denies gait dysfunction, Denies hot joints, Denies leg numbness/tingling, Denies limitation of motion, Denies loss of height , Denies morning stiffness, Denies muscle cramps, Denies muscle weakness, Denies neck stiffness, Denies prior amputations, Denies redness of joints, Denies shooting arm pain, Denies shooting leg pain Musculoskeletal: bilateral: ankle pain, ankle stiffness Integumentary: Reports dryness, Reports pruritus, Reports rash, Denies as per HPI, Denies acne, Denies boils, Denies brittle nails, Denies change in hair/ nails, Denies color changes, Denies darkening of skin, Denies depigmentation, Denies foot/leg ulcers, Denies growths, Denies hirsutism, Denies lesions, Denies onychomycosis, Denies sores, Denies striae, Denies unusual bruising, Denies wounds Neurological: Reports numbness, Reports paresthesias, Reports spasticity, Reports tingling, Denies as per HPI, Denies aphasia, Denies ataxia, Denies balance difficulties, Denies burning pain, Denies change in mentation, Denies change in smell/taste, Denies change in speech, Denies confusion, Denies convulsions, Denies double vision, Denies gait dysfunction, Denies head injury, Denies headaches, Denies hearing difficulties, Denies lack of coordination, Denies loss of vision, Denies memory loss, Denies migraines, Denies motor disturbance, Denies paralysis, Denies seizures, Denies sensory deficit, Denies syncope, Denies tic, Denies transient paralysis, Denies tremors, Denies vertigo , Denies weakness, Denies visual changes Psychiatric: Reports anhedonia, Reports anxiety, Reports irritability, Reports sleep disturbances, Denies as per HPI, Denies anxiety attacks, Denies change in appetite, Denies change in libido, Denies change in sleep habits, Denies confusion, Denies depression, Denies difficulty concentrating, Denies disorientation, Denies hallucinations, Denies hopelessness, Denies hypersomnia, Denies insomnia, Denies memory loss, Denies mood swings, Denies paranoia, Denies sadness/tearfulness, Denies suicidal ideation Endocrine: Reports fatigue, Reports polyuria, Denies as per HPI, Denies cold intolerance, Denies deepening of the voice, Denies excessive sweating, Denies excessive thirst, Denies flushing, Denies heat intolerance, Denies high blood sugars, Denies increase in ring/shoe/hat size, Denies low blood sugars, Denies nocturia, Denies palpitations, Denies polydipsia, Denies polyphagia, Denies proptosis, Denies recent glucocorticoid use, Denies thyroid mass, Denies weight change Hematologic/Lymphatic: Denies as per HPI, Denies easy bleeding, Denies easy bruising, Denies lymphadenopathy, Denies lymphedema, Denies thrombophilia Allergic/Immunologic: Reports allergic rhinitis, Denies as per HPI, Denies anaphylaxis, Denies angioedema, Denies gluten intolerance, Denies persistent infections, Denies seasonal allergies, Denies urticaria, Denies wheezing Past Medical History Past Medical History: COPD, Eye Disorder, Fibromyalgia, Osteoarthritis (OA) Additional Past Medical History / Comment(s): Pt states high cholesterol is no longer a problem and has been taken off medication, arthritis in spine, chronic low back pain with bilateral sciatica but more so on the L side, DDD, .37 cm aoritc aneurysm, born with only L kidney, murmur, varicose veins bilaterally, past migraines, beginnings of cataracts bilaterally History of Any Multi-Drug Resistant Organisms: None Reported Past Surgical History: Bladder Surgery, Breast Surgery, Hysterectomy, Orthopedic Surgery, Tonsillectomy Additional Past Surgical History / Comment(s): bilateral mastectomy and reconctruction for pre-cancer, EGD/colonoscopy done about 4 months ago, L tonsillectomy, low back pain procedures, bunionectomy R foot, bladder suspension. Past Anesthesia/Blood Transfusion Reactions: Motion Sickness Past Psychological History: No Psychological Hx Reported Additional Psychological History / Comment(s): Pt resides with her spouse. She is independent. Smoking Status: Light tobacco smoker Past Alcohol Use History: None Reported Additional Past Alcohol Use History / Comment(s): Pt states she has smoked for about 45 yrs. She states she is a lite smoker, less than a 1/2 ppd. Past Drug Use History: None Reported - Past Family History Mother Family Medical History: Cancer, Coronary Artery Disease (CAD) Additional Family Medical History / Comment(s): Mother of pancreatic/liver cancer at the age of 86yrs. Father Family Medical History: Cancer Additional Family Medical History / Comment(s): Father of lung cancer at the age of 82yrs. Medications and Allergies Home Medications Medication Instructions Recorded Confirmed Type Carisoprodol [Soma] 350 mg PO QID PRN 01/20/16 09/07/16 History Budesonide-Formot 160-4.5 Mcg 2 puff INHALATION RT-BID 01/25/16 09/07/16 History [Symbicort 160-4.5 Mcg Inhaler] HYDROcodone/APAP 5-325MG [[place] 1 tab PO QID PRN 07/23/16 09/07/16 History 5-325] Ipratropium/Albuterol Sulfate 2 puff INHALATION RT-QID PRN 07/23/16 09/07/16 History [Combivent Respimat Inhaler] DULoxetine HCL [Cymbalta] 60 mg PO DAILY 09/02/16 09/07/16 History L.acidoph,Paracasei, B.lactis 1 cap PO DAILY 09/07/16 09/07/16 History [Probiotic] Allergies Allergy/AdvReac Type Severity Reaction Status Date / Time levofloxacin [From Levuin] Allergy Anaphylaxis Verified 09/07/16 08:50 Physical Exam Vitals: Vital Signs Temp Pulse Pulse Resp BP BP Pulse Ox 09/07/16 15:00 96.8 F L 75 18 158/89 95 09/07/16 12:03 97.6 F 70 18 137/82 95 09/07/16 11:14 98.5 F 78 18 156/76 96 09/07/16 09:17 98.5 F 75 16 137/70 94 L 09/07/16 07:54 97.8 F 75 17 140/64 96 Intake and Output 09/07/16 09/07/16 09/07/16 06:59 14:59 22:59 Other: Voiding Method Toilet # Voids 3 # Bowel Movements 3 3 Weight 48 kg Patient Weight 09/08/16 06:59 Weight 48 kg - Constitutional General appearance: no average body habitus, cooperative, disheveled, no mild distress, no morbidly obese, no no acute distress, no obese, no severe distress , thin - EENT Eyes: no abnormal pupil, no anicteric sclerae, no disc margins sharp, no edentulous, no EOMI, no PERRLA, no fundus normal, no photophobia, no dentition normal, no poor dentition, no ptosis, no scleral icterus, normal appearance ENT: hard of hearing, no hearing grossly normal, no NA/AT, no normal oropharynx , no other, pharyngeal erythema, no thrush, no tonsillar exudates, no tonsillar swelling Ears: bilateral: normal - Neck Neck: no lymphadenopathy, normal ROM, no other, no rigidity, no stridor, no thyromegaly Carotids: bilateral: upstroke normal Thyroid: bilateral: normal size - Respiratory Respiratory: bilateral: CTA, diminished - Cardiovascular Rhythm: regular Heart sounds: normal: S1, S2 Abnormal Heart Sounds: systolic murmur - Gastrointestinal Significant distended abdominal area with severe tenderness and distention or rebound or rigidity hyper bowel sound at this point. General gastrointestinal: no absent bowel sounds, no decreased bowel sounds, distended, no hepatomegaly, hyperactive bowel sounds, no normal bowel sounds, organomegaly, no rigid, no scaphoid, no soft, no splenomegaly, tenderness, no umbilical hernia, no ventral hernia - Integumentary Integumentary: no calor, no cellulitis, no cyanotic, no decreased turgor, no flushed, no jaundiced, normal, no normal turgor, pale, rash, no ulcer - Neurologic Neurologic: CNII-XII intact - Musculoskeletal Musculoskeletal: gait normal, generalized weakness, no strength equal bilaterally, no right sided weakness, no left sided weakness - Psychiatric Psychiatric: A&O x's 3, appropriate affect, no intact judgment & insight Results CBC & Chem 7: 09/07/16 08:10 09/07/16 08:10 Labs: Abnormal Lab Results - Last 24 Hours (Table) 09/07/16 09/07/16 09/07/16 Range/Units 08:10 08:10 08:10 WBC 14.1 H (3.8-10.6) k/uL Hct 46.1 H (34.0-46.0) % Neutrophils # 11.7 H (1.3-7.7) k/uL Chloride 111 H (98-107) mmol/L Carbon Dioxide 21 L (22-30) mmol/L C-Reactive Protein (<10.0) mg/L Total Protein 5.7 L (6.3-8.2) g/dL Albumin 3.2 L (3.5-5.0) g/dL Urine Protein 2+ H (Negative) Urine Blood Small H (Negative) Hyaline Casts 4 H (0-2) /lpf Urine Mucus Rare H (None) /hpf Stool Occult Blood (Negative) C. difficile (EIA) Intrp (Negative) 09/07/16 09/07/16 09/07/16 Range/Units 08:10 12:00 12:00 WBC (3.8-10.6) k/uL Hct (34.0-46.0) % Neutrophils # (1.3-7.7) k/uL Chloride (98-107) mmol/L Carbon Dioxide (22-30) mmol/L C-Reactive Protein 25.2 H (<10.0) mg/L Total Protein (6.3-8.2) g/dL Albumin (3.5-5.0) g/dL Urine Protein (Negative) Urine Blood (Negative) Hyaline Casts (0-2) /lpf Urine Mucus (None) /hpf Stool Occult Blood Positive H (Negative) C. difficile (EIA) Intrp Positive A (Negative) Thrombosis Risk Factor Assmnt - DVT/VTE Prophylaxis DVT/VTE Prophylaxis: Mechanical Prophylaxis ordered - Choose All That Apply Any of the Below Risk Factors Present?: Yes Each Factor Represents 1 point: Abnormal pulmonary function (COPD), Varicose veins Other Risk Factors: Yes Each Risk Factor Represents 2 Points: Age 61-74 years Other congenital or acquired thrombophilia - If yes, enter type in comment: No Thrombosis Risk Factor Assessment Total Risk Factor Score: 4 Thrombosis Risk Factor Assessment Level: Moderate Risk Assessment and Plan Plan: 1 severe abdominal pain: Most likely secondary to acute colitis can be ischemic or infectious or can be combination of both. Admit patient to the hospital continue current management as a treatment for infectious colitis we'll consult GI and general surgery. 2 severe acute colitis on a chronic diarrhea: With the current symptoms especially with the C. difficile been positive patient be treated with Flagyl. 3 C. difficile colitis: Continue Flagyl for total of 2 weeks has been on IV Flagyl switched to oral by tomorrow especially if her abdominal exam become less toxic. 4 COPD: Continue Combivent along with Symbicort as before. 5 severe fibromyalgia has been on hydrocodone and Cymbalta. 6 abdominal aortic aneurysm: Size is still at 3.0 cm has been on conservative management only. 7 chronic back pain: Has been on muscle relaxer and hydrocodone dose. 8 GI prophylaxis: Patient will be on Pepcid 20 mg daily. 9 DVT prophylaxis: Venodyne boots and knee-high AMBER hose would be done. CODE STATUS: Full code. Expectation from's admission: Patient be the hospital for more than 2 nights.
[2016-09-07] MEDS: metroNIDAZOLE-NS PMX 500 MG in SALINE 1 100ML.BAG IVPB SCH ×2 (17:05→21:12)
[2016-09-07] MEDS ORDERED: LOPERAMIDE 2 MG CAP PO SCH (18:00)
[2016-09-07] MEDS: SYMBICORT 160-4.5 MCG INHALER INHALATION SCH (20:07)
[2016-09-07 21:06] LABS: Gliadin AB IgA, Deaminated NEGATIVE (NEGATIVE); Gliadin AB IgG, Deaminated NEGATIVE (NEGATIVE); Gliadin AB IgG, Unit <0.4 U/mL; Tis Transglutaminase IgA Unit <0.5 AI; Tis Transglutaminase IgG Unit <0.8 U/mL
[2016-09-08] MEDS: HYDROmorphone 1 MG/ML 1 ML SYRINGE IV PRN ×5 (01:37→20:23)
[2016-09-08] MEDS: ENOXAPARIN 40 MG/0.4 ML SYRINGE SQ SCH (08:57)
[2016-09-08] MEDS: DULoxetine HCL 60 MG CAPSULE.DR PO SCH (08:57)
[2016-09-08] MEDS: LACTOBACILLUS ACIDOPH & BULGAR 1 EACH PACKET PO SCH (08:57)
[2016-09-08] MEDS: PANTOPRAZOLE 40 MG/10 ML VIAL IV SCH (08:57)
[2016-09-08] MEDS: metroNIDAZOLE-NS PMX 500 MG in SALINE 1 100ML.BAG IVPB SCH ×3 (08:57→20:23)
[2016-09-08] MEDS: ONDANSETRON 4 MG/2 ML VIAL IVP PRN (09:17)
--- NOTE | 2016-09-08 09:23 | P.GSCN ---
History of Present Illness Consult date: 09/08/16 Reason for Consult: Diarrhea History of present illness: This a 71-year-old female who's had a to a half month history of diarrhea. Patient states that she has had chronic watery diarrhea. She was treated as outpatient with Flagyl. Patient has C. diff study performed in the hospital. She is positive for C. diff colitis. Past Medical History Past Medical History: COPD, Eye Disorder, Fibromyalgia, Osteoarthritis (OA) Additional Past Medical History / Comment(s): Pt states high cholesterol is no longer a problem and has been taken off medication, arthritis in spine, chronic low back pain with bilateral sciatica but more so on the L side, DDD, .37 cm aoritc aneurysm, born with only L kidney, murmur, varicose veins bilaterally, past migraines, beginnings of cataracts bilaterally History of Any Multi-Drug Resistant Organisms: None Reported Past Surgical History: Bladder Surgery, Breast Surgery, Hysterectomy, Orthopedic Surgery, Tonsillectomy Additional Past Surgical History / Comment(s): bilateral mastectomy and reconctruction for pre-cancer, EGD/colonoscopy done about 4 months ago, L tonsillectomy, low back pain procedures, bunionectomy R foot, bladder suspension. Past Anesthesia/Blood Transfusion Reactions: Motion Sickness Past Psychological History: No Psychological Hx Reported Additional Psychological History / Comment(s): Pt resides with her spouse. She is independent. Smoking Status: Light tobacco smoker Past Alcohol Use History: None Reported Additional Past Alcohol Use History / Comment(s): Pt states she has smoked for about 45 yrs. She states she is a lite smoker, less than a 1/2 ppd. Past Drug Use History: None Reported - Past Family History Mother Family Medical History: Cancer, Coronary Artery Disease (CAD) Additional Family Medical History / Comment(s): Mother of pancreatic/liver cancer at the age of 86yrs. Father Family Medical History: Cancer Additional Family Medical History / Comment(s): Father of lung cancer at the age of 82yrs. Medications and Allergies Home Medications Medication Instructions Recorded Confirmed Type Carisoprodol [Soma] 350 mg PO QID PRN 01/20/16 09/07/16 History Budesonide-Formot 160-4.5 Mcg 2 puff INHALATION RT-BID 01/25/16 09/07/16 History [Symbicort 160-4.5 Mcg Inhaler] HYDROcodone/APAP 5-325MG [[place] 1 tab PO QID PRN 07/23/16 09/07/16 History 5-325] Ipratropium/Albuterol Sulfate 2 puff INHALATION RT-QID PRN 07/23/16 09/07/16 History [Combivent Respimat Inhaler] DULoxetine HCL [Cymbalta] 60 mg PO DAILY 09/02/16 09/07/16 History L.acidoph,Paracasei, B.lactis 1 cap PO DAILY 09/07/16 09/07/16 History [Probiotic] Allergies Allergy/AdvReac Type Severity Reaction Status Date / Time levofloxacin [From Levaquin] Allergy Anaphylaxis Verified 09/07/16 08:50 Surgical - Exam Vital Signs Temp Pulse Resp BP Pulse Ox 97.8 F 75 17 140/64 96 09/07/16 07:54 09/07/16 07:54 09/07/16 07:54 09/07/16 07:54 09/07/16 07:54 - General well developed, no distress - Eyes PERRL - ENT normal pinna - Neck no masses - Respiratory normal expansion - Cardiovascular Rhythm: regular - Abdomen Mild tenderness throughout there is no rebound or guarding. Abdomen: soft Results - Labs 09/07/16 08:10 09/07/16 08:10 Abnormal Lab Results - Last 24 Hours (Table) 09/07/16 09/07/16 09/07/16 Range/Units 08:10 12:00 12:00 C-Reactive Protein 25.2 H (<10.0) mg/L Stool Occult Blood Positive H (Negative) C. difficile (EIA) Intrp Positive A (Negative) Microbiology - Last 24 Hours (Table) 09/07/16 12:00 Stool for WBCs - Final Stool 09/07/16 12:00 Stool Culture - Preliminary Stool Assessment and Plan Plan: C. diff colitis causing severe diarrhea. Patient received IV antibiotics. GI seen as well. She will start on full liquid diet.
[2016-09-08] MEDS: METOCLOPRAMIDE 5 MG/ML 2 ML VIAL IVP PRN ×2 (10:47→22:55)
[2016-09-08] MEDS: CHERRY FLAVOR 60 ML BOTTLE PO PRN ×2 (11:43→17:18)
[2016-09-08] MEDS: VANCOMYCIN ORAL SOLUTION 250 MG/5 ML BOTTLE PO SCH ×2 (11:43→17:18)
[2016-09-08] MEDS: SYMBICORT 160-4.5 MCG INHALER INHALATION SCH ×2 (12:08→19:39)
--- NOTE | 2016-09-08 12:39 | PN ---
Patient is a 71-year-old pleasant white female admitted to the hospital with chronic diarrhea for the last 2 months' duration. She took some antibiotics for a tooth infection about 2 months ago. She had been having bowel movements anywhere from 10 to 15 a day which were loose to watery in consistency. Following admission to the hospital yesterday she had some stool studies done and was reported positive for C. difficile toxin. The patient was subsequently started on metronidazole. This morning she had about 4 loose watery bowel movements. The abdominal pain is gradually improving. She denies any rectal bleeding or melena. No fever, chills or night sweats. On physical examination, she appears comfortable in no apparent distress. Vitals as are stable. Blood pressure is 137/82, pulse rate 70, temperature 97.6. HEENT EXAMINATION: Unremarkable. Conjunctivae pink. Sclerae anicteric. Oral cavity, no lesions. NECK: No JVD or lymph node enlargement. CHEST: Clear to auscultation. HEART: Regular rate and rhythm. ABDOMEN: Soft. Bowel sounds are positive. There was mild tenderness diffusely all over the abdomen. EXTREMITIES: No pedal edema. SKIN: No rashes. NEURO: Alert and oriented x3. No focal deficits. LABS: WBC 14.1, hemoglobin 16, platelets are normal. Basic metabolic panel was within normal limits. Stool for C. difficile toxin was positive. IMPRESSION: 1. Acute Clostridium difficile colitis presently on IV Flagyl started yesterday. Still continues to have diarrhea and abdominal pain, but better than before. She had recent antibiotic use about 2 months ago for tooth infection. She was also given empiric Flagyl on outpatient basis about 3 weeks ago with no help. RECOMMENDATIONS: 1. Continue with IV Flagyl. 2. We will start her oral vancomycin 250 mg q.6 hours. 3. Start her on clear liquid diet and advance as tolerated. 4. Repeat CBC in the morning and will follow her closely during her hospital stay. Thank you for this consultation.
--- NOTE | 2016-09-08 14:57 | P.PN ---
Subjective 71-year-old female [address] Nunez's patient with past medical history of COPD, fibromyalgia, chronic back pain, PAD and aortic aneurysm who has been seen in our office for the last few years. Patient apparently developed to have significant diarrhea and abdominal pain for the last 2 and half to 3 months was seen and evaluated by Dr. Caceres and apparently had an EGD and colonoscopy back on 05/15/2016 result were consistent with no major abnormality the colon area was normal with no sign of polyps or colitis at the time. Patient has an appointment to see her compilation clerk down in [place] scheduled for sometimes in September. For the last 7 days had significant increase abdominal pain her diarrhea become much worse and had over 55 episode of diarrhea in the last 24 hours. Patient ended up coming to the emergency department at [facility] surprisingly her CAT scan of the abdomen shows significant abnormality consistent with mild colitis ischemic versus infectious specially in the sigmoid area. Patient was started on Flagyl will consult Dr. Jamison and consult Dr. Harley gastroenterology further study and testing for us 2 weeks and for celiac need to be done patient might need to be treated as well. Surprisingly her C. difficile culture came back positive patient will be continue on Flagyl for now might consult infectious disease for possible need to be on different anti-C. difficile medication if that is a failure to Flagyl. 09/08/2016: Patient is laying down in bed she continues to have the generalized weakness, she continues to have some diarrhea, however she is better than yesterday, she denies any chest pain, shortness breath, she has no fever or chills, she is tolerating her treatment very well. Objective - Vital Signs Vital signs: Vital Signs Temp 97.2 F L 09/08/16 07:00 Pulse 72 09/08/16 07:00 Resp 14 09/08/16 07:00 BP 118/45 09/08/16 07:00 Pulse Ox 95 09/08/16 07:00 Intake & Output 09/07/16 09/08/16 09/08/16 18:59 06:59 18:59 Weight 48 kg Other: Voiding Method Toilet # Voids 3 1 # Bowel Movements 3 1 - Exam - Constitutional General appearance: no average body habitus, cooperative, disheveled, no mild distress, no morbidly obese, no no acute distress, no obese, no severe distress , thin - EENT Eyes: no abnormal pupil, no anicteric sclerae, no disc margins sharp, no edentulous, no EOMI, no PERRLA, no fundus normal, no photophobia, no dentition normal, no poor dentition, no ptosis, no scleral icterus, normal appearance ENT: hard of hearing, no hearing grossly normal, no NA/AT, no normal oropharynx , no other, pharyngeal erythema, no thrush, no tonsillar exudates, no tonsillar swelling Ears: bilateral: normal - Neck Neck: no lymphadenopathy, normal ROM, no other, no rigidity, no stridor, no thyromegaly Carotids: bilateral: upstroke normal Thyroid: bilateral: normal size - Respiratory Respiratory: bilateral: CTA, diminished - Cardiovascular Rhythm: regular Heart sounds: normal: S1, S2 Abnormal Heart Sounds: systolic murmur - Gastrointestinal Significant distended abdominal area with severe tenderness and distention or rebound or rigidity hyper bowel sound at this point. General gastrointestinal: no absent bowel sounds, no decreased bowel sounds, distended, no hepatomegaly, hyperactive bowel sounds, no normal bowel sounds, organomegaly, no rigid, no scaphoid, no soft, no splenomegaly, tenderness, no umbilical hernia, no ventral hernia - Integumentary Integumentary: no calor, no cellulitis, no cyanotic, no decreased turgor, no flushed, no jaundiced, normal, no normal turgor, pale, rash, no ulcer - Neurologic Neurologic: CNII-XII intact - Musculoskeletal Musculoskeletal: gait normal, generalized weakness, no strength equal bilaterally, no right sided weakness, no left sided weakness - Psychiatric Psychiatric: A&O x's 3, appropriate affect, no intact judgment & insight - Labs CBC & Chem 7: 09/07/16 08:10 09/07/16 08:10 Labs: Abnormal Lab Results - Last 24 Hours (Table) 09/07/16 09/07/16 09/07/16 Range/Units 08:10 12:00 12:00 C-Reactive Protein 25.2 H (<10.0) mg/L Stool Occult Blood Positive H (Negative) C. difficile (EIA) Intrp Positive A (Negative) Microbiology - Last 24 Hours (Table) 09/07/16 12:00 Stool for WBCs - Final Stool 06/23/17 12:00 Stool Culture - Preliminary Stool Assessment and Plan Plan: Assessment and Plan Plan: 1 severe abdominal pain: Most likely secondary to acute colitis can be ischemic or infectious due to C. difficile colitis. or can be combination of both. Admit patient to the hospital continue current management as a treatment for infectious colitis we'll consult GI and general surgery. 2 severe acute colitis on a chronic diarrhea: With the current symptoms especially with the C. difficile been positive patient be treated with Flagyl. 3 C. difficile colitis: Continue Flagyl for total of 2 weeks has been on IV Flagyl switched to oral by tomorrow especially if her abdominal exam become less toxic. 4 COPD: Continue Combivent along with Symbicort as before. 5 severe fibromyalgia has been on hydrocodone and Cymbalta. 6 abdominal aortic aneurysm: Size is still at 3.0 cm has been on conservative management only. 7 chronic back pain: Has been on muscle relaxer and hydrocodone dose. 8 GI prophylaxis: Patient will be on Pepcid 20 mg daily. 9 DVT prophylaxis: Venodyne boots and knee-high AMBER hose would be done. CODE STATUS: Full code.
[2016-09-09] MEDS: CHERRY FLAVOR 60 ML BOTTLE PO PRN ×3 (00:01→18:06)
[2016-09-09] MEDS: VANCOMYCIN ORAL SOLUTION 250 MG/5 ML BOTTLE PO SCH ×4 (00:01→18:05)
[2016-09-09 08:51] LABS: ALT 25 U/L (9-52); AST 23 U/L (14-36); Alkaline Phosphatase 67 U/L (38-126); Anion Gap 9 mmol/L; Blood Urea Nitrogen 11 mg/dL (7-17); Calcium 8.3 mg/dL (8.4-10.2); Carbon Dioxide 23 mmol/L (22-30); Chloride 107 mmol/L (98-107); Glucose 71 mg/dL (74-99); Magnesium 1.7 mg/dL (1.6-2.3); Non-African American GFR(MDRD) >60 (>60 ml/min/1.73 sqM); Potassium 3.6 mmol/L (3.5-5.1); Sodium 139 mmol/L (137-145); Total Bilirubin 0.4 mg/dL (0.2-1.3)
[2016-09-09] MEDS: ENOXAPARIN 40 MG/0.4 ML SYRINGE SQ SCH (08:51)
[2016-09-09] MEDS: PANTOPRAZOLE 40 MG/10 ML VIAL IV SCH (08:51)
[2016-09-09] MEDS: metroNIDAZOLE-NS PMX 500 MG in SALINE 1 100ML.BAG IVPB SCH ×3 (08:51→22:13)
[2016-09-09] MEDS: DULoxetine HCL 60 MG CAPSULE.DR PO SCH (08:52)
[2016-09-09] MEDS: LACTOBACILLUS ACIDOPH & BULGAR 1 EACH PACKET PO SCH (08:52)
[2016-09-09 09:42] LABS: Basophils % (A) 0 %; CH 31.2; CHCM 33.2; Eosinophils # (A) 0.1 k/uL (0-0.7); Eosinophils % (A) 1 %; HCT 44.1 % (34.0-46.0); HDW 2.25; HGB 14.2 gm/dL (11.4-16.0); Luc # (Auto) 0.12; Luc % (Auto) 1; Lymphocytes # (A) 1.3 k/uL (1.0-4.8); Lymphocytes % (A) 11 %; MCH 30.5 pg (25.0-35.0); MCHC 32.2 g/dL (31.0-37.0); MCV 94.7 fL (80.0-100.0); Mean Platelet Volume 7.9; Monocytes # (A) 0.5 k/uL (0-1.0); Monocytes % (A) 4 %; Neutrophils # (A) 9.6 k/uL (1.3-7.7); Neutrophils % (A) 83 %; RBC 4.66 m/uL (3.80-5.40); WBC 11.6 k/uL (3.8-10.6); WBC (Perox) 12.04
[2016-09-09] MEDS: HYDROmorphone 1 MG/ML 1 ML SYRINGE IV PRN ×2 (10:33→20:17)
[2016-09-09] MEDS: ONDANSETRON 4 MG/2 ML VIAL IVP PRN ×2 (10:34→20:16)
[2016-09-09] MEDS: SODIUM CHLORIDE 0.9% 1,000 ML IV SCH (10:40)
--- NOTE | 2016-09-09 12:43 | P.PN ---
Progress Note - Text The patient states she feels better. She has had fewer complaints of abdominal pain and cramps. Her diarrhea is also improved. On exam her vital signs are stable. Her abdomen soft. Resolving C. diff colitis. Patient continue receive IV antibiotic.
--- NOTE | 2016-09-09 13:02 | P.PN ---
Subjective 71-year-old female [address] Nunez's patient with past medical history of COPD, fibromyalgia, chronic back pain, PAD and aortic aneurysm who has been seen in our office for the last few years. Patient apparently developed to have significant diarrhea and abdominal pain for the last 2 and half to 3 months was seen and evaluated by Dr. Caceres and apparently had an EGD and colonoscopy back on 05/15/2016 result were consistent with no major abnormality the colon area was normal with no sign of polyps or colitis at the time. Patient has an appointment to see her knot cutter down in [place] scheduled for sometimes in September. For the last 7 days had significant increase abdominal pain her diarrhea become much worse and had over 55 episode of diarrhea in the last 24 hours. Patient ended up coming to the emergency department at [facility] surprisingly her CAT scan of the abdomen shows significant abnormality consistent with mild colitis ischemic versus infectious specially in the sigmoid area. Patient was started on Flagyl will consult Dr. Jamison and consult Dr. Harley gastroenterology further study and testing for us 2 weeks and for celiac need to be done patient might need to be treated as well. Surprisingly her C. difficile culture came back positive patient will be continue on Flagyl for now might consult infectious disease for possible need to be on different anti-C. difficile medication if that is a failure to Flagyl. 09/08/2016: Patient is laying down in bed she continues to have the generalized weakness, she continues to have some diarrhea, however she is better than yesterday, she denies any chest pain, shortness breath, she has no fever or chills, she is tolerating her treatment very well. 09/09/2016: Patient is laying down in bed she is feeling better, she denies any chest pain, shortness breath, she has abdominal pain especially in the left lower quadrant, diarrhea is better, no hematochezia, no hematemesis. Objective - Vital Signs Vital signs: Vital Signs Temp 97.6 F 09/09/16 07:00 Pulse 69 09/09/16 07:00 Resp 18 09/09/16 07:00 BP 138/71 09/09/16 07:00 Pulse Ox 92 L 09/09/16 07:00 Intake & Output 09/08/16 09/09/16 09/09/16 18:59 06:59 18:59 Intake Total 600 Balance 600 Intake: Oral 600 Other: # Voids 2 1 # Bowel Movements 2 1 - Exam - Constitutional General appearance: no average body habitus, cooperative, disheveled, no mild distress, no morbidly obese, no no acute distress, no obese, no severe distress , thin - EENT Eyes: no abnormal pupil, no anicteric sclerae, no disc margins sharp, no edentulous, no EOMI, no PERRLA, no fundus normal, no photophobia, no dentition normal, no poor dentition, no ptosis, no scleral icterus, normal appearance ENT: hard of hearing, no hearing grossly normal, no NA/AT, no normal oropharynx , no other, pharyngeal erythema, no thrush, no tonsillar exudates, no tonsillar swelling Ears: bilateral: normal - Neck Neck: no lymphadenopathy, normal ROM, no other, no rigidity, no stridor, no thyromegaly Carotids: bilateral: upstroke normal Thyroid: bilateral: normal size - Respiratory Respiratory: bilateral: CTA, diminished - Cardiovascular Rhythm: regular Heart sounds: normal: S1, S2 Abnormal Heart Sounds: systolic murmur - Gastrointestinal Significant distended abdominal area with severe tenderness and distention or rebound or rigidity hyper bowel sound at this point. General gastrointestinal: no absent bowel sounds, no decreased bowel sounds, distended, no hepatomegaly, hyperactive bowel sounds, no normal bowel sounds, organomegaly, no rigid, no scaphoid, no soft, no splenomegaly, tenderness, no umbilical hernia, no ventral hernia - Integumentary Integumentary: no calor, no cellulitis, no cyanotic, no decreased turgor, no flushed, no jaundiced, normal, no normal turgor, pale, rash, no ulcer - Neurologic Neurologic: CNII-XII intact - Musculoskeletal Musculoskeletal: gait normal, generalized weakness, no strength equal bilaterally, no right sided weakness, no left sided weakness - Psychiatric Psychiatric: A&O x's 3, appropriate affect, no intact judgment & insight - Labs CBC & Chem 7: 09/09/16 07:40 09/09/16 07:40 Labs: Abnormal Lab Results - Last 24 Hours (Table) 09/09/16 Range/Units 07:40 Glucose 71 L (74-99) mg/dL Calcium 8.3 L (8.4-10.2) mg/dL Total Protein 5.0 L (6.3-8.2) g/dL Albumin 2.7 L (3.5-5.0) g/dL Assessment and Plan Plan: Assessment and Plan Plan: 1 severe abdominal pain: Most likely secondary to acute colitis can be ischemic or infectious due to C. difficile colitis. or can be combination of both. Admit patient to the hospital continue current management as a treatment for infectious colitis we'll consult GI and general surgery. 2 severe acute colitis on a chronic diarrhea: With the current symptoms especially with the C. difficile been positive patient be treated with Flagyl. 3 C. difficile colitis: Continue Flagyl for total of 2 weeks has been on IV Flagyl switched to oral by tomorrow especially if her abdominal exam become less toxic. 4 COPD: Continue Combivent along with Symbicort as before. 5 severe fibromyalgia has been on hydrocodone and Cymbalta. 6 abdominal aortic aneurysm: Size is still at 3.0 cm has been on conservative management only. 7 chronic back pain: Has been on muscle relaxer and hydrocodone dose. 8 GI prophylaxis: Patient will be on Pepcid 20 mg daily. 9 DVT prophylaxis: Venodyne boots and knee-high AMBER hose would be done. CODE STATUS: Full code.
--- NOTE | 2016-09-09 13:09 | PN ---
The patient is a 71-year-old pleasant white female admitted to the hospital with severe diarrhea for the last 2 months' duration. She was noted to have positive C. difficile toxin has been on IV Flagyl and oral vancomycin that was started yesterday. She is doing somewhat better today. She had 4 soft bowel movements this morning. The abdominal pain is improving, tolerating clear liquid diet. On physical examination, appears comfortable in no apparent distress. Vital signs are stable. Blood pressure 135/92, pulse 73. Temperature 97. HEENT: Unremarkable. Conjunctivae pink. Sclerae anicteric. Oral cavity, no lesions. NECK: No JVD or lymph node enlargement or lymph node enlargement. Chest was clear to auscultation. HEART: Regular rate and rhythm. ABDOMEN: Soft. Bowel sounds are positive. No organomegaly. EXTREMITIES: No pedal edema. SKIN: No rashes. NEURO: Alert and oriented x3. No focal deficits. Labs done from today are still pending at the time of this dictation. IMPRESSION: Acute clostridium difficile colitis on IV Flagyl and p.o. vancomycin day number two, gradually improving. RECOMMENDATIONS: 1. Advanced to a soft diet. 2. Continue with current antibiotics. 3. Possible discharge tomorrow if her symptoms continue to improve. Thank you for this consultation.
[2016-09-09] MEDS: SYMBICORT 160-4.5 MCG INHALER INHALATION SCH ×2 (15:50→19:46)
[2016-09-10] MEDS: CHERRY FLAVOR 60 ML BOTTLE PO PRN ×3 (00:42→17:59)
[2016-09-10] MEDS: SODIUM CHLORIDE 0.9% 1,000 ML IV SCH ×3 (05:48→19:34)
[2016-09-10] MEDS: VANCOMYCIN ORAL SOLUTION 250 MG/5 ML BOTTLE PO SCH ×4 (05:50→17:59)
[2016-09-10] MEDS: HYDROmorphone 1 MG/ML 1 ML SYRINGE IV PRN ×3 (05:56→19:29)
[2016-09-10] MEDS: ONDANSETRON 4 MG/2 ML VIAL IVP PRN ×3 (05:57→23:47)
[2016-09-10 07:26] LABS: Basophils % (A) 0 %; CH 31.2; CHCM 33.2; Eosinophils # (A) 0.1 k/uL (0-0.7); Eosinophils % (A) 1 %; HCT 46.4 % (34.0-46.0); HDW 2.34; HGB 14.8 gm/dL (11.4-16.0); Luc # (Auto) 0.15; Luc % (Auto) 2; Lymphocytes # (A) 1.7 k/uL (1.0-4.8); Lymphocytes % (A) 18 %; MCH 30.1 pg (25.0-35.0); MCHC 31.9 g/dL (31.0-37.0); MCV 94.3 fL (80.0-100.0); Monocytes # (A) 0.4 k/uL (0-1.0); Monocytes % (A) 4 %; Neutrophils % (A) 74 %; RBC 4.92 m/uL (3.80-5.40); WBC 9.5 k/uL (3.8-10.6); WBC (Perox) 9.77
[2016-09-10 08:04] LABS: ALT 33 U/L (9-52); AST 25 U/L (14-36); Alkaline Phosphatase 69 U/L (38-126); Anion Gap 8 mmol/L; Blood Urea Nitrogen 13 mg/dL (7-17); Calcium 8.3 mg/dL (8.4-10.2); Carbon Dioxide 25 mmol/L (22-30); Chloride 108 mmol/L (98-107); Glucose 97 mg/dL (74-99); Non-African American GFR(MDRD) >60 (>60 ml/min/1.73 sqM); Potassium 3.8 mmol/L (3.5-5.1); Sodium 141 mmol/L (137-145); Total Bilirubin 0.4 mg/dL (0.2-1.3); Total Protein 5.4 g/dL (6.3-8.2)
[2016-09-10] MEDS: ENOXAPARIN 40 MG/0.4 ML SYRINGE SQ SCH (08:28)
[2016-09-10] MEDS: PANTOPRAZOLE 40 MG/10 ML VIAL IV SCH (08:29)
[2016-09-10] MEDS: DULoxetine HCL 60 MG CAPSULE.DR PO SCH (08:29)
[2016-09-10] MEDS: LACTOBACILLUS ACIDOPH & BULGAR 1 EACH PACKET PO SCH (08:29)
[2016-09-10] MEDS: SYMBICORT 160-4.5 MCG INHALER INHALATION SCH ×2 (09:06→20:51)
[2016-09-10] MEDS: metroNIDAZOLE-NS PMX 500 MG in SALINE 1 100ML.BAG IVPB SCH (09:14)
--- NOTE | 2016-09-10 12:27 | P.PN ---
Subjective 71-year-old female [address] Nunez's patient with past medical history of COPD, fibromyalgia, chronic back pain, PAD and aortic aneurysm who has been seen in our office for the last few years. Patient apparently developed to have significant diarrhea and abdominal pain for the last 2 and half to 3 months was seen and evaluated by Dr. Caceres and apparently had an EGD and colonoscopy back on 05/15/2016 result were consistent with no major abnormality the colon area was normal with no sign of polyps or colitis at the time. Patient has an appointment to see her back tender down in [place] scheduled for sometimes in September. For the last 7 days had significant increase abdominal pain her diarrhea become much worse and had over 55 episode of diarrhea in the last 24 hours. Patient ended up coming to the emergency department at [facility] surprisingly her CAT scan of the abdomen shows significant abnormality consistent with mild colitis ischemic versus infectious specially in the sigmoid area. Patient was started on Flagyl will consult Dr. Jamison and consult Dr. Harley gastroenterology further study and testing for us 2 weeks and for celiac need to be done patient might need to be treated as well. Surprisingly her C. difficile culture came back positive patient will be continue on Flagyl for now might consult infectious disease for possible need to be on different anti-C. difficile medication if that is a failure to Flagyl. 09/08/2016: Patient is laying down in bed she continues to have the generalized weakness, she continues to have some diarrhea, however she is better than yesterday, she denies any chest pain, shortness breath, she has no fever or chills, she is tolerating her treatment very well. 09/09/2016: Patient is laying down in bed she is feeling better, she denies any chest pain, shortness breath, she has abdominal pain especially in the left lower quadrant, diarrhea is better, no hematochezia, no hematemesis. 09/10/2016: Patient is feeling a lot better today she went to the bathroom about 4 times with diarrhea she continues to have some bloating in her stomach however her pain is a lot better today she has mild nausea she ate soft diet she denies any vomiting she has no fever or chills at this point in time. We' ll change her Flagyl to oral 500 mg orally 3 times every day and continue with vancomycin patient can be discharged home tomorrow morning. Objective - Vital Signs Vital signs: Vital Signs Temp 96.9 F L 09/10/16 07:00 Pulse 70 09/10/16 07:00 Resp 16 09/10/16 07:00 BP 137/65 09/10/16 07:00 Pulse Ox 93 L 09/10/16 07:00 Intake & Output 09/09/16 09/10/16 09/10/16 18:59 06:59 18:59 Intake Total 1740 Balance 1740 Intake: Intake, IV Titration 700 Amount Sodium Chloride 0.9% 1, 600 000 ml @ 75 mls/hr IV . [id number] [facility] Rx#:[id number] metroNIDAZOLE-NS PMX 500 100 mg In Saline 1 100ml.bag @ 100 mls/hr IVPB TID [facility] Rx#:[id number] Oral 1040 Other: Voiding Method Toilet Toilet Toilet # Voids 2 1 # Bowel Movements 2 - Exam - Constitutional General appearance: no average body habitus, cooperative, disheveled, no mild distress, no morbidly obese, no no acute distress, no obese, no severe distress , thin - EENT Eyes: no abnormal pupil, no anicteric sclerae, no disc margins sharp, no edentulous, no EOMI, no PERRLA, no fundus normal, no photophobia, no dentition normal, no poor dentition, no ptosis, no scleral icterus, normal appearance ENT: hard of hearing, no hearing grossly normal, no NA/AT, no normal oropharynx , no other, pharyngeal erythema, no thrush, no tonsillar exudates, no tonsillar swelling Ears: bilateral: normal - Neck Neck: no lymphadenopathy, normal ROM, no other, no rigidity, no stridor, no thyromegaly Carotids: bilateral: upstroke normal Thyroid: bilateral: normal size - Respiratory Respiratory: bilateral: CTA, diminished - Cardiovascular Rhythm: regular Heart sounds: normal: S1, S2 Abnormal Heart Sounds: systolic murmur - Gastrointestinal Significant distended abdominal area with severe tenderness and distention or rebound or rigidity hyper bowel sound at this point. General gastrointestinal: no absent bowel sounds, no decreased bowel sounds, distended, no hepatomegaly, hyperactive bowel sounds, no normal bowel sounds, organomegaly, no rigid, no scaphoid, no soft, no splenomegaly, tenderness, no umbilical hernia, no ventral hernia - Integumentary Integumentary: no calor, no cellulitis, no cyanotic, no decreased turgor, no flushed, no jaundiced, normal, no normal turgor, pale, rash, no ulcer - Neurologic Neurologic: CNII-XII intact - Musculoskeletal Musculoskeletal: gait normal, generalized weakness, no strength equal bilaterally, no right sided weakness, no left sided weakness - Psychiatric Psychiatric: A&O x's 3, appropriate affect, no intact judgment & insight - Labs CBC & Chem 7: 09/10/16 06:58 09/10/16 06:58 Labs: Abnormal Lab Results - Last 24 Hours (Table) 09/10/16 09/10/16 Range/Units 06:58 06:58 Hct 46.4 H (34.0-46.0) % Chloride 108 H (98-107) mmol/L Calcium 8.3 L (8.4-10.2) mg/dL Total Protein 5.4 L (6.3-8.2) g/dL Albumin 3.0 L (3.5-5.0) g/dL Microbiology - Last 24 Hours (Table) 09/07/16 12:00 Stool Culture - Preliminary Stool Assessment and Plan Plan: Assessment and Plan Plan: 1 severe abdominal pain: Most likely secondary to acute colitis can be ischemic or infectious due to C. difficile colitis. or can be combination of both. Admit patient to the hospital continue current management as a treatment for infectious colitis we'll consult GI and general surgery. 2 severe acute colitis on a chronic diarrhea: With the current symptoms especially with the C. difficile been positive patient be treated with Flagyl. 3 C. difficile colitis: Continue Flagyl for total of 2 weeks has been on IV Flagyl switched to oral by tomorrow especially if her abdominal exam become less toxic. 4 COPD: Continue Combivent along with Symbicort as before. 5 severe fibromyalgia has been on hydrocodone and Cymbalta. 6 abdominal aortic aneurysm: Size is still at 3.0 cm has been on conservative management only. 7 chronic back pain: Has been on muscle relaxer and hydrocodone dose. 8 GI prophylaxis: Patient will be on Pepcid 20 mg daily. 9 DVT prophylaxis: Venodyne boots and knee-high AMBER hose would be done. 10. Patient will be switched to oral metronidazole 500 mg orally 2 times every day, she is to be discharged home tomorrow morning if her diarrhea subsides. To contact isolation.
[2016-09-10] MEDS: SCOPOLAMINE 1.5MG/72HR PATCH TRANSDERM SCH (12:28)
[2016-09-10] MEDS: metroNIDAZOLE 500 MG TAB PO SCH ×2 (15:15→21:00)
--- NOTE | 2016-09-10 16:06 | PN ---
Patient is a 71-year-old pleasant lady admitted to the hospital with acute Clostridium difficile colitis. She is on IV Flagyl and p.o. vancomycin, doing much better. She had 4 bowel movements today, somewhat soft in consistency. The abdominal pain is improving, but still present. Diet is back to normal and tolerating well. No nausea or vomiting. No fever, chills, night sweats. On physical examination, blood pressure is 112/53, pulse 65, temperature 98.7. HEENT: Unremarkable. Conjunctivae pink. Sclerae anicteric. Oral cavity, no lesions. NECK: No JVD or lymph node enlargement. Chest was clear to auscultation. HEART: Regular rate and rhythm. ABDOMEN: Soft. Bowel sounds are positive. No organomegaly. Mild tenderness in the suprapubic area. EXTREMITIES: No pedal edema. SKIN: No rashes. NEURO: Alert and oriented x3. No focal deficits. Labs from today: WBC 9.5, hemoglobin 14.8, platelets normal. Basic metabolic panel is within normal limits. IMPRESSION: Acute Clostridium difficile colitis on IV Flagyl and p.o. vancomycin day number 3 and doing much better. Symptoms are gradually improving. Still has some diarrhea, but abdominal pain is resolving. RECOMMENDATIONS: 1. Continue with the current antibiotic regimen. 2. Continue to advance diet as tolerated. 3. She can be discharged home tomorrow with an outpatient follow up in 2 to 3 weeks.
[2016-09-11] MEDS: CHERRY FLAVOR 60 ML BOTTLE PO PRN ×3 (00:29→11:21)
[2016-09-11] MEDS: VANCOMYCIN ORAL SOLUTION 250 MG/5 ML BOTTLE PO SCH ×3 (00:29→11:21)
[2016-09-11] MEDS: ONDANSETRON 4 MG/2 ML VIAL IVP PRN ×2 (06:08→10:27)
[2016-09-11] MEDS: PANTOPRAZOLE 40 MG/10 ML VIAL IV SCH (07:32)
[2016-09-11] MEDS: ENOXAPARIN 40 MG/0.4 ML SYRINGE SQ SCH (07:32)
[2016-09-11] MEDS: LACTOBACILLUS ACIDOPH & BULGAR 1 EACH PACKET PO SCH (07:32)
[2016-09-11] MEDS: metroNIDAZOLE 500 MG TAB PO SCH (07:33)
[2016-09-11] MEDS: DULoxetine HCL 60 MG CAPSULE.DR PO SCH (07:33)
[2016-09-11 07:40] VITALS: BP 153/81; PULSE 59; RESP 18; TEMP 96
[2016-09-11] MEDS: SYMBICORT 160-4.5 MCG INHALER INHALATION SCH (07:59)
[2016-09-11 08:26] LABS: Anion Gap 7 mmol/L; Blood Urea Nitrogen 8 mg/dL (7-17); Calcium 8.1 mg/dL (8.4-10.2); Carbon Dioxide 23 mmol/L (22-30); Chloride 110 mmol/L (98-107); Magnesium 1.6 mg/dL (1.6-2.3); Non-African American GFR(MDRD) >60 (>60 ml/min/1.73 sqM); Sodium 140 mmol/L (137-145)
[2016-09-11 08:28] LABS: Glucose 88 mg/dL (74-99); Potassium 3.6 mmol/L (3.5-5.1)
[2016-09-11] MEDS: HYDROmorphone 1 MG/ML 1 ML SYRINGE IV PRN (10:26)
--- NOTE | 2016-09-11 13:16 | P.DS ---
Providers Date of admission: 09/07/16 10:09 Expected date of discharge: 09/11/16 Attending physician: Koko Evans Consults: 09/07/16 10:06 Consult Physician Urgent Consulting Provider: Marcello Jamison Consult Reason/Comments: abd pain, diarrhea, colitis Do you want consulting provider notified?: Yes Primary care physician: Yaritza Nunez [facility] Course: 71-year-old female [address] Nunez's patient with past medical history of COPD, fibromyalgia, chronic back pain, PAD and aortic aneurysm who has been seen in our office for the last few years. Patient apparently developed to have significant diarrhea and abdominal pain for the last 2 and half to 3 months was seen and evaluated by Dr. Caceres and apparently had an EGD and colonoscopy back on 05/15/2016 result were consistent with no major abnormality the colon area was normal with no sign of polyps or colitis at the time. Patient has an appointment to see her maintenance scheduler down in [place] scheduled for sometimes in September. For the last 7 days had significant increase abdominal pain her diarrhea become much worse and had over 55 episode of diarrhea in the last 24 hours. Patient ended up coming to the emergency department at [facility] surprisingly her CAT scan of the abdomen shows significant abnormality consistent with mild colitis ischemic versus infectious specially in the sigmoid area. Patient was started on Flagyl will consult Dr. Jamison and consult Dr. Harley gastroenterology further study and testing for us 2 weeks and for celiac need to be done patient might need to be treated as well. Surprisingly her C. difficile culture came back positive patient will be continue on Flagyl for now might consult infectious disease for possible need to be on different anti-C. difficile medication if that is a failure to Flagyl. 09/08/2016: Patient is laying down in bed she continues to have the generalized weakness, she continues to have some diarrhea, however she is better than yesterday, she denies any chest pain, shortness breath, she has no fever or chills, she is tolerating her treatment very well. 09/09/2016: Patient is laying down in bed she is feeling better, she denies any chest pain, shortness breath, she has abdominal pain especially in the left lower quadrant, diarrhea is better, no hematochezia, no hematemesis. 09/10/2016: Patient is feeling a lot better today she went to the bathroom about 4 times with diarrhea she continues to have some bloating in her stomach however her pain is a lot better today she has mild nausea she ate soft diet she denies any vomiting she has no fever or chills at this point in time. We' ll change her Flagyl to oral 500 mg orally 3 times every day and continue with vancomycin patient can be discharged home tomorrow morning. 09/11: Patient's stools are less frequent. She continues to have nausea. Patient is very anxious to be discharged home today. Patient will be discharged home today in stable condition and prescriptions for Zofran will be provided as well as vancomycin will be provided. Discharge diagnoses: 1 severe abdominal pain: Most likely secondary to acute colitis due to C. difficile colitis. 2 severe acute C. difficile colitis on a chronic diarrhea 3 COPD without exacerbation 4 severe fibromyalgia 6 abdominal aortic aneurysm: Size is still at 3.0 cm has been on conservative management only. 7 chronic back pain Discharge plan: Return home Impression and plan of care have been directed as dictated by the signing physician. Debbie Mesa nurse practitioner acting as scribe for signing physician. Patient Condition at Discharge: Good Plan - Discharge Summary New Discharge Prescriptions: New Ondansetron HCl [Zofran] 4 mg PO Q6H #40 tablet Vancomycin Oral Solution 250 mg PO Q6HR #200 ml Continue Carisoprodol [Soma] 350 mg PO QID PRN PRN Reason: Pain Budesonide-Formot 160-4.5 Mcg [Symbicort 160-4.5 Mcg Inhaler] 2 puff INHALATION RT-BID Ipratropium/Albuterol Sulfate [Combivent Respimat Inhaler] 2 puff INHALATION RT-QID PRN PRN Reason: Dyspnea HYDROcodone/APAP 5-325MG [[place] 5-325] 1 tab PO QID PRN PRN Reason: Pain DULoxetine HCL [Cymbalta] 60 mg PO DAILY Dicyclomine [Bentyl] 20 mg PO QID #20 tablet L.acidoph,Paracasei, B.lactis [Probiotic] 1 cap PO DAILY Discharge Medication List Carisoprodol [Soma] 350 mg PO QID PRN 01/20/16 [History] Budesonide-Formot 160-4.5 Mcg [Symbicort 160-4.5 Mcg Inhaler] 2 puff INHALATION RT-BID 01/25/16 [History] HYDROcodone/APAP 5-325MG [[place] 5-325] 1 tab PO QID PRN 07/23/16 [History] Ipratropium/Albuterol Sulfate [Combivent Respimat Inhaler] 2 puff INHALATION RT- QID PRN 07/23/16 [History] DULoxetine HCL [Cymbalta] 60 mg PO DAILY 09/02/16 [History] Dicyclomine [Bentyl] 20 mg PO QID #20 tablet 09/02/16 [Rx] L.acidoph,Paracasei, B.lactis [Probiotic] 1 cap PO DAILY 09/07/16 [History] Ondansetron HCl [Zofran] 4 mg PO Q6H #40 tablet 09/11/16 [Rx] Vancomycin Oral Solution 250 mg PO Q6HR #200 ml 09/11/16 [Rx] Follow up Appointment(s)/Referral(s): Yaritza Nunez MD [Primary Care Provider] - 09/19/16 11:00 am Melvi Harley MD [STAFF PHYSICIAN] - 2 Weeks Patient Instructions/Handouts: Clostridium Difficile Infection (DC) Activity/Diet/Wound Care/Special Instructions: Regular diet. NO smoking, cessation information provided. Discharge Disposition: HOME SELF-CARE
== END 2016-09-11 12:08 | disposition home or self-care (01) | DRG 372 ==
LOC: EC 07:49 → 4MS4W 10:09
PROVIDERS: ADMIT Internal Medicine Geriatric Medicine; ATTEND Internal Medicine Geriatric Medicine
DX: A04.7 Enterocolitis due to Clostridium difficile (principal); Q60.0 Renal agenesis, unilateral; J44.9 Chronic obstructive pulmonary disease, unspecified; E86.0 Dehydration; F17.200 Nicotine dependence, unspecified, uncomplicated; G89.29 Other chronic pain; I49.1 Atrial premature depolarization; I71.4 Abdominal aortic aneurysm, without rupture; M79.7 Fibromyalgia; H26.9 Unspecified cataract; I83.93 Asymptomatic varicose veins of bilateral lower extremities; M54.41 Lumbago with sciatica, right side; M54.42 Lumbago with sciatica, left side; R01.1 Cardiac murmur, unspecified; E78.5 Hyperlipidemia, unspecified; I73.9 Peripheral vascular disease, unspecified; H91.90 Unspecified hearing loss, unspecified ear; M47.9 Spondylosis, unspecified; M19.90 Unspecified osteoarthritis, unspecified site; Z79.899 Other long term (current) drug therapy; Z88.1 Allergy status to other antibiotic agents; Z82.49 Family history of ischemic heart disease and other diseases of the circulatory system
CPT/HCPCS: 36415; 74022; 80048; 80053; 81001; 82150; 82272; 83516; 83690; 83735; 85025; 85610; 85652; 85730; 86140; 87045; 87046; 87324; 89055; 93005; 94640; 96361; 96365; 96375; 99285

== ENCOUNTER → 2016-12-17 | Outpatient (CLI) | payer MEDICARE ==
[2016-12-17 12:09] LABS: CH 30.7; CHCM 31.6; HCT 46.8 % (34.0-46.0); HDW 2.11; MCH 31.3 pg (25.0-35.0); MCHC 32.1 g/dL (31.0-37.0); MCV 97.6 fL (80.0-100.0); Mean Platelet Volume 7.4; WBC 6.6 k/uL (3.8-10.6)
[2016-12-17 12:27] LABS: ALT 34 U/L (9-52); AST 35 U/L (14-36); Alkaline Phosphatase 71 U/L (38-126); Anion Gap 11 mmol/L; Blood Urea Nitrogen 20 mg/dL (7-17); Calcium 9.7 mg/dL (8.4-10.2); Carbon Dioxide 24 mmol/L (22-30); Chloride 106 mmol/L (98-107); Glucose 84 mg/dL (74-99); Non-African American GFR(MDRD) >60 (>60 ml/min/1.73 sqM); Potassium 4.7 mmol/L (3.5-5.1); Sodium 141 mmol/L (137-145); Total Bilirubin 0.6 mg/dL (0.2-1.3)
[2016-12-17 14:44] LABS: Erythrocyte Sedimentation Rate 7 mm/hr (0-20)
== END | disposition home or self-care (01) ==
LOC: LABWHC1 11:36
PROVIDERS: ATTEND Physician Assistant
DX: A04.72 Enterocolitis due to Clostridium difficile, not specified as recurrent (principal)
CPT/HCPCS: 36415; 80053; 85027; 85652